=== PATIENT | female | born 1945 | race Caucasian/White ===

== ENCOUNTER 2018-08-12 09:35 | Outpatient (REF) | payer OTHER, SELFPAY ==
[2018-08-12 12:48] LABS: Absolute Basophil Count 0.02 k/cumm (0.0-0.2); Absolute Eosinophil Count 0.07 k/cumm (0.0-0.7); Absolute Lymphocyte Count 2.25 k/cumm (1.2-3.4); Absolute Neutrophil Count 1.82 k/cumm (1.2-6.7); Basophils % 0.4; Eosinophils % 1.6; HGB 13.9 g/dL (12.0-15.5); Lymphocytes % 50.4; Mean Corp. HGB Concentration 33.1 g/dL (32.0-36.0); Mean Corpuscular Volume 93.8 fL (80-95); Mean Platelet Volume 11.4 fL (8.0-11.0); Monocytes % 6.7; Neutrophils % 40.9; Platelet Count 240 x1000/uL (130-400); RBC 4.48 m/cumm (4.00-5.20); RBC Distribution Width 13.6 % (11.7-14.6); White Blood Cell Count 4.46 k/cumm (4.4-10.8)
[2018-08-12 13:09] LABS: ALT 18 U/L (12-78); AST 17 U/L (15-37); Albumin 3.8 g/dL (3.4-5.0); Alkaline Phosphatase 79 U/L (46-116); Anion Gap 6.6 mmol/L (3-11); BUN 18 mg/dL (7-18); Bilirubin, Total 0.4 mg/dL (0.2-1.0); CO2 30.4 mmol/L (21.0-32.0); CREATININE 0.94 mg/dL (0.55-1.02); Calcium 9.2 mg/dL (8.5-10.1); Chloride 105 mmol/L (98-107); Cholesterol 230 mg/dL (50-200); Estimated GFR 58.21 (mL/min/1.73m2); Glucose 131 mg/dL (70-100); HDL Cholesterol 64 mg/dL (40-60); LDL CHOLESTEROL 145 mg/dL (<100); Potassium 4.1 mmol/L (3.5-5.1); Sodium 142 mmol/L (136-145); Total Protein 6.8 g/dL (6.4-8.2); Triglyceride 134 mg/dL (30-150)
== END 2018-08-12 09:55 ==
LOC: NCHCN 09:35
PROVIDERS: PCP Nurse Practitioner Family; Visit Provider Family Medicine
DX: E87.1 Hypo-osmolality and hyponatremia (principal); D72.829 Elevated white blood cell count, unspecified; E78.5 Hyperlipidemia, unspecified; I10 Essential (primary) hypertension
CPT/HCPCS: 80053; 80061; 83721; 84443; 85025

== ENCOUNTER 2018-09-13 08:00 | Day surgery (SDC) | payer OTHER, SELFPAY ==
--- NOTE | 2018-09-11 09:33 | POEE_ITS ---
History of Present Illness Chief Complaint: Progressive decreased vision, left eye Narrative: The patient is a 72-year old lady with history of progressive decreased vision over the past several years, left eye worse than right. 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 On examination she was noted to have significant bilateral nuclear and cortical cataracts. The option of cataract surgery was offered to the patient, including that postoperative visual acuity will be limited by the presence of her pre-existing optic neuropathy. She wished to proceed with cataract surgery of the left eye. NOTE: The Chief Complaint, HPI, Past Medical History, Past Surgical History, Family History, Social History, Medications, and complete Ophthalmic Exam with detailed Assessment and Plan have already been documented in the patient's outpatient ophthalmic record and are not covered again in detail here. PFS Medical History Cortical cataract of left eye (Acute) Optic atrophy, left eye (Chronic) Nuclear sclerotic cataract of left eye (Acute) Nuclear sclerotic cataract of right eye (Chronic) Cortical cataract of right eye (Chronic) Optic atrophy, right eye (Chronic) Social History Smoking/Tobacco Use Status: Never Meds Home Medications Medication Instructions Recorded Confirmed Type atorvastatin [Lipitor] 10 mg PO DAILY 08/15/14 09/08/18 History hydrochlorothiazide 12.5 mg PO DAILY 08/15/14 09/08/18 History aspirin [Aspirin Low-Strength] 81 mg PO DAILY tab-cap 08/29/14 09/08/18 History amlodipine [Norvasc] 10 mg PO DAILY 09/08/18 09/08/18 History cholecalciferol (vitamin D3) 2,000 unit PO DAILY 09/08/18 09/08/18 History [Vitamin D3] salmon oil-omega-3 fatty acids 2 cap PO DAILY 09/08/18 09/08/18 History [[place] Oil-1000] Allergies Allergy/AdvReac Type Severity Reaction Status Date / Time No Known Allergies Allergy Unverified 09/08/18 14:19 Exam OCULAR EXAM:: Visual acuity at distance: Best corrected distance visual acuity measures 20/80 OD, 20/100 OS. Pupils: Pupils equal, round, and reactive without afferent pupillary defect IOP: 13 OD, 17 OS Extraocular Motility: Normal Pertinent Slit Lamp Findings: Significant for pupils dilating to 5 mm OU. 3+ nuclear with 3+ cortical cataract OU. Dilated Funduscopic Examination: Disc cupping is 0.8 OU with pallor. The retinal vasculature is normal. The macula vitreous and peripheral retina are normal. BRIGHTNESS ACUITY TESTING (BAT):: Off left eye 20/200 Low: 20/100 Medium: 20/200 High: 20/200 Assessment and Plan (1) Nuclear sclerotic cataract of left eye: Current visit: No Status: Acute Assessment: Visually significant cataract, left eye. Plan: Cataract extraction with intraocular lens implantation, left eye (2) Cortical cataract of left eye: Current visit: No Status: Acute Assessment: Visually significant cataract, left eye. Plan: Cataract extraction with intraocular lens implantation, left eye (3) Optic atrophy, left eye: Current visit: No Status: Chronic Assessment: Optic atrophy with pallor and disc cupping of the left eye, long-standing Plan: Monitor. There is no treatment. Patient is aware that postoperative visual acuity after cataract surgery in the left eye will be limited by the presence of her pre-existing optic neuropathy. Note: NOTE:: The details of the planned surgery, including the risks, indications, limitations,expectations,outcome and possible complications were explained to the patient. The patient understands the complications including, but not limited to: infection, hemorrhage, posterior dislocation of the lens or nuclear fragments which may require the intervention of a vitreoretinal surgeon, possible loss of the eye, or from anesthetic complications. The patient has been made aware of the option of not having surgery, that vision following surgery may not be equal to that prior to surgery, and that the planned surgery may not achieve the intended results. Following this discussion, which the patient appeared to understand, the patient wishes to proceed with cataract surgery with lens implantation of the affected eye to improve and maximize vision.
[2018-09-13 08:23] VITALS: BP 154/91; PULSE 83; RESP 16; TEMP 36.6; O2SAT 99
[2018-09-13] MEDS: Povidone-Iodine Ophth 30 ML BTL ×2 (09:40→10:06)
[2018-09-13] MEDS: Lidocaine 2% Jelly 6 ML SYR (09:41)
[2018-09-13] MEDS: Balanced Salt Soln.-PLUS 500 ML BAG (09:47)
[2018-09-13] MEDS: Lidocaine 2% Pres-Free 5 ML VIAL (09:48)
--- NOTE | 2018-09-13 10:11 | W.PM.DSUDISC ---
Discharge Plan Discharge Details Attending Provider: Evaristo Urena Primary Care Provider: Chitra Franks Home Meds and New Rx's Prescriptions: No Action aspirin [Aspirin Low-Strength] 81 MG tablet,chewable 81 mg PO DAILY RF: 0 atorvastatin [Lipitor] 10 MG tablet 10 mg PO DAILY RF: 0 hydrochlorothiazide 12.5 MG tablet 12.5 mg PO DAILY RF: 0 amlodipine [Norvasc] 10 mg Tablet 10 mg PO DAILY RF: 0 salmon oil-omega-3 fatty acids [[place] Oil-1000] 1,000-200 mg Capsule 2 cap PO DAILY RF: 0 cholecalciferol (vitamin D3) [Vitamin D3] 2,000 unit Tablet 2,000 unit PO DAILY RF: 0 Discharge Instructions Stand Alone Forms: Post-op Topical Cataract, Clary Ferrara (DSU) DS: Diagnosis Discharge Diagnosis (1) Nuclear sclerotic cataract of left eye: Status: Resolved (2) Cortical cataract of left eye: Status: Resolved (3) Optic atrophy, left eye: Status: Chronic (4) Status post cataract extraction and insertion of intraocular lens of left eye: Status: Acute
--- NOTE | 2018-09-13 10:13 | W.PM.OP ---
Date of service: 09/13/18 Time of Service: 10:13 Operative Note DATE OF PROCEDURE: 09/13/18 PRE-OP DIAGNOSIS: Cataract, left eye POST-OP DIAGNOSIS: same PROCEDURE: Cataract extraction using phacoemulsification with intraocular lens implant, left eye SURGEON: Evaristo Urena ANESTHESIA: MAC and local (sub-tenon's anesthetic infiltration) PATHOLOGY: none sent COMPLICATIONS: None Patient was transported to: same day Patient's condition: stable Implants: Gael and Gael Vision / [employer] Tecnis ZCB00 Indications: Progressive decreased vision due to cataract, left eye Procedure Description: CATARACT SURGERY OPERATIVE REPORT PREOPERATIVE DIAGNOSIS: Nuclear/cortical cataract, left eye, symptomatic Optic atrophy, left eye POSTOPERATIVE DIAGNOSIS: Same OPERATION: Cataract extraction using phacoemulsification with posterior chamber intraocular lens implant, left eye. IOL: IOL Test And Balance Engineer/Model: [employer] Vision / CRISTINA Tecnis ZCB00 IOL Power: + 20.0 diopters IOL Serial Number: [id number] Optic Diameter: 6.0mm Haptic/Overall Diameter: 13.0mm PHACO INFO: Av [employer]urion Vision System with OZil and Active Fluidics Cumulative Dispersed Energy (CDE): 10.50 seconds SURGEON: Evaristo Urena MD, CONNIE ANESTHESIA: Monitored Anesthesia Care (MAC), with local sub-tenon's anesthetic infiltration COMPLICATIONS: None SPECIMENS: None INDICATIONS FOR PROCEDURE: The patient is a 72-year-old lady with long history of bilateral optic atrophy. She has developed significant bilateral nuclear and cortical cataracts. Best corrected vision measures 20/100 in the left eye secondary to optic atrophy and cataract. The option of cataract surgery was offered to the patient and she wished to proceed. She understands that postoperative visual acuity will be limited by the presence of pre-existing optic neuropathy. PROCEDURE: The correct surgical eye was identified and marked as the left eye and the pupil was dilated in the preoperative area using mydriatics, cycloplegics, and NSAIDS (except in aspirin allergic patients). The dilated pupil size was 6.0 mm. Oral sedation was administered in the form of an Imprimis MKO Melt (midazolam 3mg/ketamine 25mg/ondansetron 2mg), she was very anxious. The patient was brought to the operating room where cardiopulmonary monitoring was instituted and surgical time-out was performed, confirming the correct operative eye and IOL power. Topical anesthesia was administered and ophthalmic povidone-iodine 5% was instilled into the conjunctival fornices. Lidocaine gel was applied to the cornea and the leonard-ocular area was prepped with Betadine 10% solution and draped in the usual sterile fashion for intraocular surgery. Steri-strips were used to cover the lashes and lid margins and an adhesive eye drape was placed. Care was taken to isolate the lashes and lid margins under the Steri-strips and adhesive eye drape. A lid speculum was placed between the lids of the operative eye and the Jacky-Cameron operating microscope was maneuvered into position. Marychuy scissors were then used to make a conjunctival buttonhole approximately 6mm posterior to the limbus in the inferonasal quadrant. Blunt dissection was carried out to expose bare sclera, and a blunt-tipped sub-tenon?s anesthesia cannula was introduced and passed posteriorly along the globe where non-preserved plain lidocaine was injected into posterior sub-Tenon?s space. A sideport knife was used to make a paracentesis port at the 12:00 postion and the anterior chamber was filled with Healon GV. A 2.4mm keratome knife was used to create a half-thickness groove at the limbus and then to construct a three-plane near-clear corneal tunnel extending 2.0mm into clear cornea at the 3:00 position. A flap was raised on the anterior capsule and capsulorhexis forceps were used to complete a continuous curvilinear capsulorhexis of 5.5 mm. Balanced salt solution was then used to perform cortical cleaving hydrodissection and nuclear hydrodelineation until the lens could be freely rotated within the capsular bag. The lens nucleus was then disassembled and removed within the capsular bag and iris plane using phacoemulsification. Residual cortical material was removed using the 45-degree angled silicone I/A tip with 0.3mm port. The posterior capsule was carefully polished to remove as much residual lens epithelial cells as safely possible. There was some residual cortical material adherent to the posterior capsule superiorly and in the subincisional area which could not be safely removed due to constant patient movement. It was not in the visual axis and was left in place. The capsular bag was then inflated and the anterior chamber deepened with viscoelastic. The lens implant described above was inserted into the capsular bag using the CRISTINA Tazlina Injector. A Kuglen hook was used to dial the IOL into position. Residual viscoelastic was then removed first from posterior to the IOL, then from the anterior chamber using the I/A handpiece. The lens implant was noted to center nicely within the capsular bag. The incisions were stromally hydrated, and the anterior chamber was reformed using BSS. Then 0.4cc of moxifloxacin 1.5mg/ml were injected into the capsular bag and anterior chamber. The incisions were checked with a Weck spear and found to be secure. Several drops of ophthalmic povidone-iodine 5% were then applied to the eye followed by two drops of Imprimis combination moxifloxacin/dexamethasone solution. The drapes were removed and a clear plastic protective eye shield was placed over the eye. The patient was then returned to Same Day Surgery in stable condition.
--- NOTE | 2018-09-13 10:17 | ROE_ITS ---
Date of service: 09/13/18 Time of Service: 10:13 Operative Note DATE OF PROCEDURE: 09/13/18 PRE-OP DIAGNOSIS: Cataract, left eye POST-OP DIAGNOSIS: same PROCEDURE: Cataract extraction using phacoemulsification with intraocular lens implant, left eye SURGEON: Evaristo Urena ANESTHESIA: MAC and local (sub-tenon's anesthetic infiltration) PATHOLOGY: none sent COMPLICATIONS: None Patient was transported to: same day Patient's condition: stable Implants: Gael and Gael Vision / [employer] Opt[employer] Tecnis ZCB00 Indications: Progressive decreased vision due to cataract, left eye Procedure Description: CATARACT SURGERY OPERATIVE REPORT PREOPERATIVE DIAGNOSIS: Nuclear/cortical cataract, left eye, symptomatic Optic atrophy, left eye POSTOPERATIVE DIAGNOSIS: Same OPERATION: Cataract extraction using phacoemulsification with posterior chamber intraocular lens implant, left eye. IOL: IOL Grease Maker/Model: J[employer]J Vision / CRISTINA Tecnis ZCB00 IOL Power: + 20.0 diopters IOL Serial Number: [id number] Optic Diameter: 6.0mm Haptic/Overall Diameter: 13.0mm PHACO INFO: Av [employer] Vision System with OZil and Active Fluidics Cumulative Dispersed Energy (CDE): 10.50 seconds SURGEON: Evaristo Urena MD, CONNIE ANESTHESIA: Monitored Anesthesia Care (MAC), with local sub-tenon's anesthetic infiltration COMPLICATIONS: None SPECIMENS: None INDICATIONS FOR PROCEDURE: The patient is a 72-year-old lady with long history of bilateral optic atrophy. She has developed significant bilateral nuclear and cortical cataracts. Best corrected vision measures 20/100 in the left eye secondary to optic atrophy and cataract. The option of cataract surgery was offered to the patient and she wished to proceed. She understands that postoperative visual acuity will be limited by the presence of pre-existing optic neuropathy. PROCEDURE: The correct surgical eye was identified and marked as the left eye and the pupil was dilated in the preoperative area using mydriatics, cycloplegics, and NSAIDS (except in aspirin allergic patients). The dilated pupil size was 6.0 mm. Oral sedation was administered in the form of an Imprimis MKO Melt (midazolam 3mg/ketamine 25mg/ondansetron 2mg), she was very anxious. The patient was brought to the operating room where cardiopulmonary monitoring was instituted and surgical time-out was performed, confirming the correct operative eye and IOL power. Topical anesthesia was administered and ophthalmic povidone-iodine 5% was instilled into the conjunctival fornices. Lidocaine gel was applied to the cornea and the leonard-ocular area was prepped with Betadine 10% solution and draped in the usual sterile fashion for intraocular surgery. Steri-strips were used to cover the lashes and lid margins and an adhesive eye drape was placed. Care was taken to isolate the lashes and lid margins under the Steri-strips and adhesive eye drape. A lid speculum was placed between the lids of the operative eye and the Jacky-Cameron operating microscope was maneuvered into position. Marychuy scissors were then used to make a conjunctival buttonhole approximately 6mm posterior to the limbus in the inferonasal quadrant. Blunt dissection was carried out to expose bare sclera, and a blunt-tipped sub-tenon? s anesthesia cannula was introduced and passed posteriorly along the globe where non-preserved plain lidocaine was injected into posterior sub-Tenon?s space. A sideport knife was used to make a paracentesis port at the 12:00 postion and the anterior chamber was filled with Healon GV. A 2.4mm keratome knife was used to create a half-thickness groove at the limbus and then to construct a three-plane near-clear corneal tunnel extending 2.0mm into clear cornea at the 3:00 position. A flap was raised on the anterior capsule and capsulorhexis forceps were used to complete a continuous curvilinear capsulorhexis of 5.5 mm. Balanced salt solution was then used to perform cortical cleaving hydrodissection and nuclear hydrodelineation until the lens could be freely rotated within the capsular bag. The lens nucleus was then disassembled and removed within the capsular bag and iris plane using phacoemulsification. Residual cortical material was removed using the 45-degree angled silicone I/A tip with 0.3mm port. The posterior capsule was carefully polished to remove as much residual lens epithelial cells as safely possible. There was some residual cortical material adherent to the posterior capsule superiorly and in the subincisional area which could not be safely removed due to constant patient movement. It was not in the visual axis and was left in place. The capsular bag was then inflated and the anterior chamber deepened with viscoelastic. The lens implant described above was inserted into the capsular bag using the CRISTINA [place] Injector. A Kuglen hook was used to dial the IOL into position. Residual viscoelastic was then removed first from posterior to the IOL, then from the anterior chamber using the I/A handpiece. The lens implant was noted to center nicely within the capsular bag. The incisions were stromally hydrated , and the anterior chamber was reformed using BSS. Then 0.4cc of moxifloxacin 1.5mg/ml were injected into the capsular bag and anterior chamber. The incisions were checked with a Weck spear and found to be secure. Several drops of ophthalmic povidone-iodine 5% were then applied to the eye followed by two drops of Imprimis combination moxifloxacin/dexamethasone solution. The drapes were removed and a clear plastic protective eye shield was placed over the eye. The patient was then returned to Same Day Surgery in stable condition.
[2018-09-13 10:40] VITALS: BP 133/80; PULSE 78; RESP 16; TEMP 36.9; O2SAT 96
== END 2018-09-13 10:35 | disposition home or self-care (01) ==
LOC: SUR 08:02
PROVIDERS: PCP Family Medicine; Visit Provider Ophthalmology
PROC: (CPT 66984; principal; 2018-09-13 10:30)
DX: H25.812 Combined forms of age-related cataract, left eye (principal); H47.20 Unspecified optic atrophy; E11.9 Type 2 diabetes mellitus without complications; I10 Essential (primary) hypertension
CPT/HCPCS: 66984; V2632

== ENCOUNTER 2018-09-27 07:34 | Day surgery (SDC) | payer OTHER, SELFPAY ==
--- NOTE | 2018-09-26 10:13 | POEE_ITS ---
History of Present Illness Chief Complaint: Progressive decreased vision, right eye Narrative: The patient is a 73-year old female with history of progressive decreased vision in both eyes at both distance and near, left eye worse than right. She notes blurry cloudy fuzzy vision OU. She was noted to have significant bilateral nuclear and cortical cataracts with visual acuity of 20/ 100 OD, 20/200 OS. She also has a history of bilateral optic atrophy, and understands that postoperative visual acuity will be limited by the presence of her pre-existing optic neuropathy. She underwent cataract surgery in the left eye on 09/13/2018. Postoperatively she has regained best corrected vision of 20 /70 in the left eye. She was underwhelmed with the visual outcome in her left eye. She was given the option of delaying surgery on the right eye, but she wished to proceed. NOTE: The Chief Complaint, HPI, Past Medical History, Past Surgical History, Family History, Social History, Medications, and complete Ophthalmic Exam with detailed Assessment and Plan have already been documented in the patient's outpatient ophthalmic record and are not covered again in detail here. [facility] Medical History Optic atrophy, left eye (Chronic) Nuclear sclerotic cataract of right eye (Acute) Cortical cataract of right eye (Acute) Optic atrophy, right eye (Chronic) Social History Smoking/Tobacco Use Status: Never Surgical History Status post cataract extraction and insertion of intraocular lens of left eye ( Chronic 09/13/18) Meds Home Medications Medication Instructions Recorded Confirmed Type atorvastatin [Lipitor] 10 mg PO DAILY 08/15/14 09/13/18 History hydrochlorothiazide 12.5 mg PO DAILY 08/15/14 09/13/18 History aspirin [Aspirin Low-Strength] 81 mg PO DAILY tab-cap 08/29/14 09/13/18 History amlodipine [Norvasc] 10 mg PO DAILY 09/08/18 09/13/18 History cholecalciferol (vitamin D3) 2,000 unit PO DAILY 09/08/18 09/13/18 History [Vitamin D3] salmon oil-omega-3 fatty acids 2 cap PO DAILY 09/08/18 09/13/18 History [[place] Oil-1000] Allergies Allergy/AdvReac Type Severity Reaction Status Date / Time No Known Allergies Allergy Unverified 09/08/18 14:19 Exam OCULAR EXAM:: Visual acuity at distance: 20/100 right eye, 20/70 left eye. Pupils: Pupils equal, round, and reactive without afferent pupillary defect IOP: 13 OD 17 OS. Extraocular Motility: Normal Pertinent Slit Lamp Findings: Significant for 3+ nuclear and cortical cataract, right eye. Well-positioned PCIOL left eye with clear posterior capsule. Dilated Funduscopic Examination: Disc cupping is 0.8 OU with pallor. The optic nerves have good perfusion and normal color. The retinal vasculature is normal without significant tortuosity or abnormality. The maculas are normal in appearance with normal contour and foveal reflex appropriate for age. The peripheral retina and vitreous are normal. BRIGHTNESS ACUITY TESTING (BAT):: Off right eye 20/100 Low: 20/80 Medium: 20/200 High: 20/200 Assessment and Plan (1) Nuclear sclerotic cataract of right eye: Current visit: No Status: Acute Assessment: Visually significant cataract, right eye. Plan: Cataract extraction with intraocular lens implantation, right eye (2) Cortical cataract of right eye: Current visit: No Status: Acute Assessment: Visually significant cataract, right eye. Plan: Cataract extraction with intraocular lens implantation, right eye Note: NOTE:: The details of the planned surgery, including the risks, indications, limitations,expectations,outcome and possible complications were explained to the patient. The patient understands the complications including, but not limited to: infection, hemorrhage, posterior dislocation of the lens or nuclear fragments which may require the intervention of a vitreoretinal surgeon, possible loss of the eye, or from anesthetic complications. The patient has been made aware of the option of not having surgery, that vision following surgery may not be equal to that prior to surgery, and that the planned surgery may not achieve the intended results. Following this discussion, which the patient appeared to understand, the patient wishes to proceed with cataract surgery with lens implantation of the affected eye to improve and maximize vision.
[2018-09-27 07:55] VITALS: BP 162/93; PULSE 74; RESP 16; TEMP 36.6; O2SAT 100
[2018-09-27] MEDS: Lidocaine 2% Jelly 6 ML SYR (09:14)
[2018-09-27] MEDS: Balanced Salt Soln.-PLUS 500 ML BAG (09:21)
[2018-09-27] MEDS: Lidocaine 1% Pres-Free 5 ML VIAL (09:38)
[2018-09-27] MEDS: Povidone-Iodine Ophth 30 ML BTL (09:43)
--- NOTE | 2018-09-27 09:43 | W.PM.OP ---
Date of service: 09/27/18 Time of Service: 09:43 Operative Note PRE-OP DIAGNOSIS: Cataract, right eye POST-OP DIAGNOSIS: same SURGEON: Evaristo Urena ANESTHESIA: MAC and local (sub-tenon's anesthetic infiltration) PATHOLOGY: none sent COMPLICATIONS: None Patient was transported to: same day Patient's condition: stable Implants: Gael and Gael Vision / [employer] Opt[employer] Tecnis ZCB00 Indications: Progressive decreased vision due to cataract, right eye Procedure Description: CATARACT SURGERY OPERATIVE REPORT PREOPERATIVE DIAGNOSIS: Nuclear/cortical cataract, right eye, symptomatic POSTOPERATIVE DIAGNOSIS: Same OPERATION: Cataract extraction using phacoemulsification with posterior chamber intraocular lens implant, right eye. IOL: IOL Horticultural Technical Officer/Model: J&J Vision / CRISTINA Tecnis ZCB00 IOL Power: + 20.0 diopters IOL Serial Number: [id number] Optic Diameter: 6.0mm Haptic/Overall Diameter: 13.0mm PHACO INFO: Av [employer] Vision System with OZil and Active Fluidics Cumulative Dispersed Energy (CDE): 7.15 seconds SURGEON: Evaristo Urena MD, CONNIE ANESTHESIA: Monitored Anesthesia Care (MAC), with local sub-tenon's anesthetic infiltration COMPLICATIONS: None SPECIMENS: None INDICATIONS FOR PROCEDURE: The patient is a 73-year-old lady with history of diminished visual acuity in both eyes secondary to the development of bilateral nuclear and cortical cataracts. She has already undergone cataract surgery in the left eye on 09/13/2018 and is doing well postoperatively. She now presents for cataract surgery of the right eye. PROCEDURE: The correct surgical eye was identified and marked as the right eye and the pupil was dilated in the preoperative area using mydriatics, cycloplegics, and NSAIDS (except in aspirin allergic patients). The dilated pupil size was 7.0 mm. Oral sedation was administered in the form of an Imprimis MKO Melt (midazolam 3mg/ketamine 25mg/ondansetron 2mg). The patient was brought to the operating room where cardiopulmonary monitoring was instituted and surgical time-out was performed, confirming the correct operative eye and IOL power. Topical anesthesia was administered and ophthalmic povidone-iodine 5% was instilled into the conjunctival fornices. Lidocaine gel was applied to the cornea and the leonard-ocular area was prepped with Betadine 10% solution and draped in the usual sterile fashion for intraocular surgery. Steri-strips were used to cover the lashes and lid margins and an adhesive eye drape was placed. Care was taken to isolate the lashes and lid margins under the Steri-strips and adhesive eye drape. A lid speculum was placed between the lids of the operative eye and the Jacky-Cameron operating microscope was maneuvered into position. Marychuy scissors were then used to make a conjunctival buttonhole approximately 6mm posterior to the limbus in the inferonasal quadrant. Blunt dissection was carried out to expose bare sclera, and a blunt-tipped sub-tenon?s anesthesia cannula was introduced and passed posteriorly along the globe where non-preserved plain lidocaine was injected into posterior sub-Tenon?s space. A sideport knife was used to make a paracentesis port at the 7:00 postion and the anterior chamber was filled with Healon GV. A 2.4mm keratome knife was used to create a half-thickness groove at the limbus and then to construct a three-plane near-clear corneal tunnel extending 2.0mm into clear cornea at the 10:00 position. A flap was raised on the anterior capsule and capsulorhexis forceps were used to complete a continuous curvilinear capsulorhexis of 5.0 mm. Balanced salt solution was then used to perform cortical cleaving hydrodissection and nuclear hydrodelineation until the lens could be freely rotated within the capsular bag. The lens nucleus was then disassembled and removed within the capsular bag and iris plane using phacoemulsification. Residual cortical material was removed using the 45-degree angled silicone I/A tip with 0.3mm port. The posterior capsule was carefully polished to remove as much residual lens epithelial cells as safely possible. The capsular bag was then inflated and the anterior chamber deepened with viscoelastic. The lens implant described above was inserted into the capsular bag using the CRISTINA [place] Injector. A Kuglen hook was used to dial the IOL into position. Residual viscoelastic was then removed first from posterior to the IOL, then from the anterior chamber using the I/A handpiece. The lens implant was noted to center nicely within the capsular bag. The incisions were stromally hydrated, and the anterior chamber was reformed using BSS. Then 0.4cc of moxifloxacin 1.5mg/ml were injected into the capsular bag and anterior chamber. The incisions were checked with a Weck spear and found to be secure. Several drops of ophthalmic povidone-iodine 5% were then applied to the eye followed by two drops of Imprimis combination moxifloxacin/dexamethasone solution. The drapes were removed and a clear plastic protective eye shield was placed over the eye. The patient was then returned to Same Day Surgery in stable condition.
--- NOTE | 2018-09-27 09:46 | ROE_ITS ---
Date of service: 09/27/18 Time of Service: 09:43 Operative Note PRE-OP DIAGNOSIS: Cataract, right eye POST-OP DIAGNOSIS: same SURGEON: Evaristo Urena ANESTHESIA: MAC and local (sub-tenon's anesthetic infiltration) PATHOLOGY: none sent COMPLICATIONS: None Patient was transported to: same day Patient's condition: stable Implants: Gael and Gael Vision / [employer] Medical Opt[employer] Tecnis ZCB00 Indications: Progressive decreased vision due to cataract, right eye Procedure Description: CATARACT SURGERY OPERATIVE REPORT PREOPERATIVE DIAGNOSIS: Nuclear/cortical cataract, right eye, symptomatic POSTOPERATIVE DIAGNOSIS: Same OPERATION: Cataract extraction using phacoemulsification with posterior chamber intraocular lens implant, right eye. IOL: IOL Faculty Research Assistant/Model: J&J Vision / CRISTINA Tecnis ZCB00 IOL Power: + 20.0 diopters IOL Serial Number: [id number] Optic Diameter: 6.0mm Haptic/Overall Diameter: 13.0mm PHACO INFO: Av [employer] Vision System with OZil and Active Fluidics Cumulative Dispersed Energy (CDE): 7.15 seconds SURGEON: Evaristo Urena MD, CONNIE ANESTHESIA: Monitored Anesthesia Care (MAC), with local sub-tenon's anesthetic infiltration COMPLICATIONS: None SPECIMENS: None INDICATIONS FOR PROCEDURE: The patient is a 73-year-old lady with history of diminished visual acuity in both eyes secondary to the development of bilateral nuclear and cortical cataracts. She has already undergone cataract surgery in the left eye on 2017 and is doing well postoperatively. She now presents for cataract surgery of the right eye. PROCEDURE: The correct surgical eye was identified and marked as the right eye and the pupil was dilated in the preoperative area using mydriatics, cycloplegics, and NSAIDS (except in aspirin allergic patients). The dilated pupil size was 7.0 mm. Oral sedation was administered in the form of an Imprimis MKO Melt (midazolam 3mg/ketamine 25mg/ondansetron 2mg). The patient was brought to the operating room where cardiopulmonary monitoring was instituted and surgical time-out was performed, confirming the correct operative eye and IOL power. Topical anesthesia was administered and ophthalmic povidone-iodine 5% was instilled into the conjunctival fornices. Lidocaine gel was applied to the cornea and the leonard-ocular area was prepped with Betadine 10% solution and draped in the usual sterile fashion for intraocular surgery. Steri-strips were used to cover the lashes and lid margins and an adhesive eye drape was placed. Care was taken to isolate the lashes and lid margins under the Steri-strips and adhesive eye drape. A lid speculum was placed between the lids of the operative eye and the Jacky-Cameron operating microscope was maneuvered into position. Marychuy scissors were then used to make a conjunctival buttonhole approximately 6mm posterior to the limbus in the inferonasal quadrant. Blunt dissection was carried out to expose bare sclera, and a blunt-tipped sub-tenon? s anesthesia cannula was introduced and passed posteriorly along the globe where non-preserved plain lidocaine was injected into posterior sub-Tenon?s space. A sideport knife was used to make a paracentesis port at the 7:00 postion and the anterior chamber was filled with Healon GV. A 2.4mm keratome knife was used to create a half-thickness groove at the limbus and then to construct a three-plane near-clear corneal tunnel extending 2.0mm into clear cornea at the 10:00 position. A flap was raised on the anterior capsule and capsulorhexis forceps were used to complete a continuous curvilinear capsulorhexis of 5.0 mm. Balanced salt solution was then used to perform cortical cleaving hydrodissection and nuclear hydrodelineation until the lens could be freely rotated within the capsular bag. The lens nucleus was then disassembled and removed within the capsular bag and iris plane using phacoemulsification. Residual cortical material was removed using the 45-degree angled silicone I/A tip with 0.3mm port. The posterior capsule was carefully polished to remove as much residual lens epithelial cells as safely possible. The capsular bag was then inflated and the anterior chamber deepened with viscoelastic. The lens implant described above was inserted into the capsular bag using the CRISTINA [place] Injector. A Kuglen hook was used to dial the IOL into position. Residual viscoelastic was then removed first from posterior to the IOL, then from the anterior chamber using the I/A handpiece. The lens implant was noted to center nicely within the capsular bag. The incisions were stromally hydrated , and the anterior chamber was reformed using BSS. Then 0.4cc of moxifloxacin 1.5mg/ml were injected into the capsular bag and anterior chamber. The incisions were checked with a Weck spear and found to be secure. Several drops of ophthalmic povidone-iodine 5% were then applied to the eye followed by two drops of Imprimis combination moxifloxacin/dexamethasone solution. The drapes were removed and a clear plastic protective eye shield was placed over the eye. The patient was then returned to Same Day Surgery in stable condition.
--- NOTE | 2018-09-27 09:47 | PDOC.DSDIS_ITS ---
Discharge Plan Discharge Details Attending Provider: Evaristo Urena Primary Care Provider: Chitra Franks Home Meds and New Rx's Prescriptions: No Action aspirin [Aspirin Low-Strength] 81 MG tablet,chewable 81 mg PO DAILY RF: 0 atorvastatin [Lipitor] 10 MG tablet 10 mg PO DAILY RF: 0 hydrochlorothiazide 12.5 MG tablet 12.5 mg PO DAILY RF: 0 amlodipine [Norvasc] 10 mg Tablet 10 mg PO DAILY RF: 0 salmon oil-omega-3 fatty acids [[place] Oil-1000] 1,000-200 mg Capsule 2 cap PO DAILY RF: 0 cholecalciferol (vitamin D3) [Vitamin D3] 2,000 unit Tablet 2,000 unit PO DAILY RF: 0 Discharge Instructions Stand Alone Forms: Post-op Topical Cataract, Clary Ferrara (DSU) DS: Diagnosis Discharge Diagnosis (1) Nuclear sclerotic cataract of right eye: Status: Resolved (2) Cortical cataract of right eye: Status: Resolved (3) Status post cataract extraction and insertion of intraocular lens of right eye: Status: Chronic
[2018-09-27 10:00] VITALS: BP 134/81; PULSE 71; RESP 16; TEMP 37.3; O2SAT 97
== END 2018-09-27 10:16 | disposition home or self-care (01) ==
LOC: SUR 07:35
PROVIDERS: PCP Family Medicine; Visit Provider Ophthalmology
PROC: (CPT 66984; principal; 2018-09-27 09:30)
DX: H25.811 Combined forms of age-related cataract, right eye (principal); Z98.42 Cataract extraction status, left eye; Z96.1 Presence of intraocular lens; E11.9 Type 2 diabetes mellitus without complications; I10 Essential (primary) hypertension
CPT/HCPCS: 66984; V2632

== ENCOUNTER 2019-03-12 09:30 | Emergency (ER) | payer MEDICARE, SELFPAY ==
[2019-03-12 09:39] VITALS: BP 169/76; PULSE 72; RESP 16; TEMP 37; O2SAT 99
--- NOTE | 2019-03-12 10:07 | DI.RAD_ITS ---
SYMPTOM/DIAGNOSIS: FALL, PAIN RIGHT WRIST: There is an intra-articular fracture of the distal radius seen best on the lateral view. There is also question of a fracture extending transversely through the distal radial metaphysis visible on the lateral view. There is surrounding soft tissue swelling. No carpal fractures or dislocation seen. IMPRESSION: Nondisplaced intra-articular fracture of the distal radius.
--- NOTE | 2019-03-12 10:13 | W.ED.GENAD ---
Discharge Plan Disposition Patient Disposition: HOME Discharge Details Chief Complaint: Orthopedic Clinical Impression: Closed fracture of distal end of right radius Primary Care Provider: Chitra Franks ED Provider: Marcellus Villalobos Home Meds and New Rx's Prescriptions: Continued aspirin [Aspirin Low-Strength] 81 MG tablet,chewable 81 mg PO DAILY RF: 0 atorvastatin [Lipitor] 10 MG tablet 10 mg PO DAILY RF: 0 hydrochlorothiazide 12.5 MG tablet 12.5 mg PO DAILY RF: 0 amlodipine [Norvasc] 10 mg Tablet 10 mg PO DAILY RF: 0 [place] Oil-1000 1,000-200 mg Capsule 2 cap PO DAILY RF: 0 cholecalciferol (vitamin D3) [Vitamin D3] 2,000 unit Tablet 2,000 unit PO DAILY RF: 0 Discharge Instructions Instructions: Wrist Fracture in Adults (ED) Additional Instructions: Please take ibuprofen over the counter - dose according to label. Please follow-up with orthopedics. Call for an appointment. Use wrist splint and no use of right hand and wrist until cleared. Return to the ER for any worsening or new concerning symptoms. Referrals: Bowen Morse MD [ [facility] STAFF PHYSICIAN] - Discharge Data Discharge Date/Time-TO BE ENTERED AT DEPARTURE: 03/12/19 12:00 Medical Decision Making 73-year-old female with FOOSH injury 3 hours prior to arrival after fall down 3-4 steps, here with right wrist pain and tenderness. Neurovascular intact distally. X-ray of the right wrist interpreted by me: Concern for nondisplaced distal radial fracture. X-ray reviewed and interpreted by radiology: Lucency in the dorsal aspect of the distal radius seen only on the lateral may represent unhealed fracture of unknown age. [place] volar wrist splint applied. Patient neurovascular intact post splint application. Patient was advised to call orthopedics to arrange follow-up. She was instructed not to use her right wrist until cleared. Ibuprofen was recommended. Usual customary discharge instructions were provided. HPI General Mode of arrival: ambulatory. Date/Time Provider Initiated Documentation: 03/12/19 09:45. Limitations to Documentation: no limitations. Information obtained by: patient. HPI Narrative: 73-year-old female with FOOSH injury 3 hours prior to arrival after fall down 3-4 steps, here with right wrist pain, moderate, localized to dorsal wrist, worse with flex/ext wrist, no assoc numbness or weakness. No head trauma. No other injury. Related Data Home Medications Medication Instructions Recorded Confirmed atorvastatin [Lipitor] 10 mg PO DAILY 08/15/14 03/12/19 hydrochlorothiazide 12.5 mg PO DAILY 08/15/14 03/12/19 aspirin [Aspirin Low-Strength] 81 mg PO DAILY tab-cap 08/29/14 03/12/19 [place] Oil-1000 2 cap PO DAILY 09/08/18 03/12/19 amlodipine [Norvasc] 10 mg PO DAILY 09/08/18 03/12/19 cholecalciferol (vitamin D3) 2,000 unit PO DAILY 09/08/18 03/12/19 [Vitamin D3] Allergies Allergy/AdvReac Type Severity Reaction Status Date / Time No Known Allergies Allergy Unverified 03/12/19 09:42 General Stated Complaint: Orthopedic BERONICA: 4 Review of Systems Constitutional Denies headache(s) ENT Denies headache(s) and Denies neck pain Musculoskeletal Reports as per HPI and Denies neck pain Integumentary/Breasts Comments: no laceration Neurologic Denies headache(s) [facility] Medical History Optic atrophy, left eye (Chronic) Optic atrophy, right eye (Chronic) Cortical cataract of right eye (Resolved) Nuclear sclerotic cataract of right eye (Resolved) Surgical History Status post cataract extraction and insertion of intraocular lens of right eye (Chronic) Status post cataract extraction and insertion of intraocular lens of left eye (Chronic 09/13/18) Social History Smoking/Tobacco Use Status: Never Drug use: Never Do you feel safe in your relationship?: Yes Exam Const General: cooperative and no acute distress [facility] Head: normocephalic and atraumatic Mouth: moist mucous membranes Neck Neck: trachea midline and supple Resp Auscultation: clear to auscultation bilaterally, no rales, no rhonchi and no wheezes Cardio Jugular venous pressure: no JVD Rate: regular rate and not tachycardic Rhythm: regular rhythm Pulses: radial pulses present on the right 2+ GI Palpation: soft, not firm, no guarding, no masses, not rigid and nontender Skin General skin exam: no rashes or lesions noted Neuro General: alert, awake, oriented x3 and tone normal Extrem General: no edema Right upper extremity: elbow/forearm Details: normal to inspection and normal ROM; no tenderness and wrist Details: tenderness Location: of the distal radius, swelling (mild) Location: of the dorsal wrist and abnormal ROM Details: pain with active ROM during Details: with extension Course Vital Signs Temperature 37 C 03/12/19 09:39 Pulse 72 03/12/19 09:39 Respiratory Rate 16 03/12/19 09:39 Blood Pressure 169/76 H 03/12/19 09:39 Pulse Oximetry 99 03/12/19 09:39 Temperature 37 C 03/12/19 09:39 Temperature Source Skin 03/12/19 09:39 Pulse 72 03/12/19 09:39 Respiratory Rate 16 03/12/19 09:39 Respiratory Effort Non-Labored 03/12/19 09:39 Blood Pressure 169/76 H 03/12/19 09:39 Blood Pressure Position Sitting 03/12/19 09:39 Pulse Oximetry 99 03/12/19 09:39 Oxygen Delivery Method Room Air 03/12/19 09:39 Oxygen Flow Rate 0 03/12/19 09:39 Pain Level 6 03/12/19 10:08
--- NOTE | 2019-03-12 11:33 | DI.VRAD_ITS ---
EXAM: XR Right Wrist Complete, 3 or more Views EXAM DATE/TIME: 03/12/2019 10:18 AM CLINICAL HISTORY: 73 years old, female; Pain; Wrist; Right TECHNIQUE: Imaging protocol: XR Right wrist 3 or more views. COMPARISON: No relevant prior studies available. FINDINGS: Bones/joints: Degenerative changes in the radiocarpal joint Lucency in the dorsal aspect of the distal radius seen only on the lateral may represent unhealed fracture of unknown age. Soft tissues: Circumferential soft tissue swelling. IMPRESSION: Lucency in the dorsal aspect of the distal radius seen only on the lateral may represent unhealed fracture of unknown age. Dictated and Authenticated by: Jaya Coleman MD. Ordering:TESS Germain MD
== END 2019-03-12 12:00 | disposition home or self-care (01) ==
PROVIDERS: Emergency Provider Student in an Organized Health Care Education/Training Program; PCP Family Medicine
DX: S52.591A Other fractures of lower end of right radius, initial encounter for closed fracture (principal); W10.9XXA Fall (on) (from) unspecified stairs and steps, initial encounter
CPT/HCPCS: 25600; 73110; L3908

== ENCOUNTER 2019-03-30 09:46 | Outpatient (CLI) | payer MEDICARE, SELFPAY ==
--- NOTE | 2019-03-30 09:44 | DI.RAD_ITS ---
SYMPTOM/DIAGNOSIS: F/U FX RIGHT WRIST: Three views. Comparison is made with 03/12/19. There has been no change in alignment of the fracture involving the distal right radius compared to the prior examination. No new fractures or dislocations are seen.
== END 2019-03-30 10:06 ==
PROVIDERS: PCP Family Medicine; Referring Provider Family Medicine; Visit Provider Student in an Organized Health Care Education/Training Program
DX: S52.571A Other intraarticular fracture of lower end of right radius, initial encounter for closed fracture (principal); W19.XXXA Unspecified fall, initial encounter
CPT/HCPCS: 29125; 99203; 99213; 73110; L3908

== ENCOUNTER 2019-04-20 08:08 | Outpatient (CLI) | payer MEDICARE, SELFPAY ==
--- NOTE | 2019-04-20 08:01 | DI.RAD_ITS ---
SYMPTOM/DIAGNOSIS: F/U FX RIGHT WRIST: When compared with the previous examination of 03/30/19, there has been no interval change. Again noted is the radiolucency and no change in alignment of the fracture when compared with the previous images.
== END 2019-04-20 08:28 ==
PROVIDERS: PCP Family Medicine; Referring Provider Family Medicine; Visit Provider Student in an Organized Health Care Education/Training Program
DX: S52.571D Other intraarticular fracture of lower end of right radius, subsequent encounter for closed fracture with routine healing (principal); W19.XXXD Unspecified fall, subsequent encounter
CPT/HCPCS: 99213; 73110

== ENCOUNTER → 2019-05-25 08:26 | Outpatient (BNVA) | payer MEDICARE, SELFPAY | PROVIDERS: PCP Family Medicine; Referring Provider Family Medicine; Visit Provider Student in an Organized Health Care Education/Training Program | DX: S52.571A Other intraarticular fracture of lower end of right radius, initial encounter for closed fracture (principal); X58.XXXA Exposure to other specified factors, initial encounter | CPT/HCPCS: 99213 ==

== ENCOUNTER 2019-09-15 08:29 | Outpatient (REF) | payer MEDICARE, SELFPAY ==
[2019-09-15 13:40] LABS: HCT 43.2 % (36.0-46.0); HGB 14.2 g/dL (12.0-15.5); Mean Corp. HGB Concentration 32.9 g/dL (32.0-36.0); Mean Corpuscular Hemoglobin 30.5 pg (27.0-33.0); Mean Corpuscular Volume 92.9 fL (80-95); Mean Platelet Volume 11.2 fL (8.0-11.0); Platelet Count 293 x1000/uL (130-400); RBC 4.65 m/cumm (4.00-5.20); RBC Distribution Width 13.8 % (11.7-14.6); White Blood Cell Count 4.95 k/cumm (4.4-10.8)
[2019-09-15 13:54] LABS: ALT 21 U/L (14-59); AST 14 U/L (15-37); Albumin 3.7 g/dL (3.4-5.0); Alkaline Phosphatase 91 U/L (46-116); Anion Gap 9.2 mmol/L (3-11); BUN 24 mg/dL (7-18); Bilirubin, Total 0.7 mg/dL (0.2-1.0); CO2 28.8 mmol/L (21.0-32.0); Calcium 9.3 mg/dL (8.5-10.1); Calculated LDL 145 mg/dL; Chloride 105 mmol/L (98-107); Cholesterol 231 mg/dL (50-200); Glucose 132 mg/dL (70-100); HDL Cholesterol 62 mg/dL (40-60); Sodium 143 mmol/L (136-145); Total Protein 6.9 g/dL (6.4-8.2); Triglyceride 123 mg/dL (30-150)
[2019-09-15 14:46] LABS: Hemoglobin A1C 6.5 % (4.5-6.2)
== END 2019-09-15 08:49 ==
LOC: NCHCN 08:29
PROVIDERS: PCP Family Medicine; Visit Provider Family Medicine
DX: E11.9 Type 2 diabetes mellitus without complications (principal); E78.5 Hyperlipidemia, unspecified; R53.83 Other fatigue
CPT/HCPCS: 80053; 80061; 85027; 83036

== ENCOUNTER 2020-09-06 10:06 | Outpatient (REF) | payer MEDICARE, SELFPAY ==
[2020-09-06 21:13] LABS: HCT 43.3 % (36.0-46.0); HGB 14.3 g/dL (11.2-15.7); MCH 30.3 pg (27.0-33.0); MCV 91.7 fL (80-95); MPV 11.3 fL (8.0-11.0); Platelet Count 275 10^3/uL (130-400); RBC 4.72 10^6/uL (3.93-5.22); RDW 13.1 % (11.7-14.6); RDW-SD 44.3 fL; WBC 6.07 10^3/uL (4.4-10.8)
[2020-09-06 21:41] LABS: Hemoglobin A1C 6.5 % (<5.7)
[2020-09-06 21:49] LABS: ALT 18 U/L (14-59); AST 23 U/L (15-37); Alkaline Phosphatase 78 U/L (46-116); Anion Gap 11.2 mmol/L (3-11); BUN 23 mg/dL (7-18); CO2 27.8 mmol/L (21.0-32.0); Calcium 9.8 mg/dL (8.5-10.1); Calculated LDL 167 mg/dL (<100); Chloride 103 mmol/L (98-107); Cholesterol 256 mg/dL (<200); Estimated GFR 48.29 (mL/min/1.73m2); Glucose 145 mg/dL (74-106); HDL Cholesterol 68 mg/dL (40-60); Sodium 142 mmol/L (136-145); Total Protein 7.3 g/dL (6.4-8.2); Triglyceride 108 mg/dL (<150)
== END 2020-09-06 10:26 ==
LOC: NCHCN 10:06
PROVIDERS: PCP Family Medicine; Visit Provider Family Medicine
DX: E11.9 Type 2 diabetes mellitus without complications (principal); I10 Essential (primary) hypertension; E78.5 Hyperlipidemia, unspecified
CPT/HCPCS: 80053; 80061; 85027; 83036

== ENCOUNTER 2021-04-12 00:43 | Outpatient (CLI) | payer MEDICARE, SELFPAY ==
--- NOTE | 2021-04-12 13:00 | NS.NUTBLAN_ITS ---
Cheryl was referred for Medical Nutrition Therapy for diabetes self management education and dietary strategies while having CKD3. Most recent labs (09/06/2020) elevated BUN/Cre, A1C 6.5%, Chol: 256, LDL: 167, Hdl 68. Meds include: atorvastatin, lisinopril, norvasc. Dm is diet controlled. Family hx of ESRD. Cheryl is very concerned about her declining renal function and would like more information on how to reduce further damage by adjusting her intake of potassium, sodium and phosphorus. BMI wnl. Active senior. Cooks most of her own meals, bakes her own bread. Education focused on dietary recommendations for intakes of sodium, potassium and phosphorus in diet to maintain optimal kidney function. Also, encouraged maintaining BP <140/90 and good glycemic control A1C <7%. Reviewed carbohydrate counting to maintain consistent carb intake during day. May need oral DM meds if A1C becomes elevated > 7%, Cheryl's current dietary intake meets recommendations for kidney health at this time as she does most of her own cooking and maintains her BP and A1C in ideal range for kidney health. No follow up planned at this time.
== END 2021-04-12 00:44 | disposition home or self-care (01) ==
PROVIDERS: PCP Family Medicine; Visit Provider Dietitian, Registered
DX: E11.9 Type 2 diabetes mellitus without complications (principal); N18.30 Chronic kidney disease, stage 3 unspecified; Z71.3 Dietary counseling and surveillance
CPT/HCPCS: 97802

== ENCOUNTER 2021-09-26 08:44 | Outpatient (REF) | payer MEDICARE, SELFPAY ==
[2021-09-26 13:58] LABS: Hemoglobin A1C 6.3 % (<5.7)
[2021-09-26 13:59] LABS: ALT 17 U/L (14-59); AST 14 U/L (15-37); Albumin 3.8 g/dL (3.4-5.0); Alkaline Phosphatase 72 U/L (46-116); Anion Gap 8.4 mmol/L (3-11); BUN 21 mg/dL (7-18); Bilirubin, Total 0.7 mg/dL (0.2-1.0); CO2 30.6 mmol/L (21.0-32.0); Calcium 9.6 mg/dL (8.5-10.1); Calculated LDL 279 mg/dL (<100); Chloride 104 mmol/L (98-107); Cholesterol 370 mg/dL (<200); Estimated GFR 53.62 (mL/min/1.73m2); Glucose 133 mg/dL (74-106); HDL Cholesterol 63 mg/dL (40-60); Potassium 4.5 mmol/L (3.5-5.1); Sodium 143 mmol/L (136-145); Total Protein 6.7 g/dL (6.4-8.2); Triglyceride 142 mg/dL (<150)
[2021-09-26 14:04] LABS: Bilirubin Negative (Negative); Blood Negative (Negative); Clarity Clear (Clear); Glucose Negative (Negative); Ketones Negative (Negative); Leukocyte Esterase Trace (Negative); Nitrite Negative (Negative); Specific Gravity 1.025 (1.005-1.025); Urobilinogen 0.2 EU/dL (Up TO 0.2)
[2021-09-26 14:12] LABS: Bacteria Rare HPF (Negative); C & S Indicated? Yes; Casts Negative LPF (Negative); Crystals Negative HPF (Negative); Epithelial Cells Few HPF (Negative); Mucus Negative (Negative); RBC Negative HPF (0-2)
== END 2021-09-26 08:45 | disposition home or self-care (01) ==
LOC: NCHCN 08:44
PROVIDERS: PCP Family Medicine; Visit Provider Family Medicine
DX: E11.9 Type 2 diabetes mellitus without complications (principal); I10 Essential (primary) hypertension; R53.83 Other fatigue; E78.5 Hyperlipidemia, unspecified; R30.0 Dysuria; N18.9 Chronic kidney disease, unspecified
CPT/HCPCS: 80053; 80061; 81003; 81015; 83036; 87086

== ENCOUNTER 2022-03-03 18:12 | Outpatient (REF) | payer MEDICARE, SELFPAY ==
[2022-03-03 19:36] LABS: ALT 21 U/L (14-59); AST 15 U/L (15-37); Alkaline Phosphatase 62 U/L (46-116); Anion Gap 8.1 mmol/L (3-11); BUN 18 mg/dL (7-18); Bilirubin, Total 0.8 mg/dL (0.2-1.0); CO2 28.9 mmol/L (21.0-32.0); CREATININE 1.1 mg/dL (0.55-1.02); Calcium 9.7 mg/dL (8.5-10.1); Chloride 106 mmol/L (98-107); Estimated GFR 48.04 (mL/min/1.73m2); Glucose 131 mg/dL (74-106); Potassium 4.6 mmol/L (3.5-5.1); Sodium 143 mmol/L (136-145); Total Protein 6.6 g/dL (6.4-8.2)
[2022-03-03 19:38] LABS: Hemoglobin A1C 6.3 % (<5.7)
[2022-03-03 19:56] LABS: Calculated LDL 136 mg/dL (<100); Cholesterol 226 mg/dL (<200); HDL Cholesterol 71 mg/dL (40-60); Triglyceride 98 mg/dL (<150)
== END 2022-03-03 18:13 | disposition home or self-care (01) ==
LOC: NCHCN 18:12
PROVIDERS: PCP Family Medicine; Visit Provider Family Medicine
DX: E11.9 Type 2 diabetes mellitus without complications (principal); E78.5 Hyperlipidemia, unspecified; I10 Essential (primary) hypertension; N18.9 Chronic kidney disease, unspecified
CPT/HCPCS: 80053; 80061; 83036

== ENCOUNTER 2022-08-20 08:49 | Outpatient (REF) | payer MEDICARE, SELFPAY ==
[2022-08-20 17:19] LABS: Calculated LDL 143 mg/dL (<100); Cholesterol 236 mg/dL (<200); HDL Cholesterol 66 mg/dL (40-60); Triglyceride 139 mg/dL (<150)
== END 2022-08-20 08:50 | disposition home or self-care (01) ==
LOC: NCHCN 08:49
PROVIDERS: PCP Family Medicine; Visit Provider Family Medicine
DX: E78.5 Hyperlipidemia, unspecified (principal)
CPT/HCPCS: 80061

== ENCOUNTER 2022-08-27 16:50 | Outpatient (REF) | payer MEDICARE, SELFPAY ==
[2022-08-27 19:59] LABS: Anion Gap 5.4 mmol/L (3-11); BUN 21 mg/dL (7-18); CO2 29.6 mmol/L (21.0-32.0); CREATININE 0.9 mg/dL (0.55-1.02); Chloride 105 mmol/L (98-107); Estimated GFR 65.44 (mL/min/1.73m2); Glucose 132 mg/dL (74-106); Potassium 4.1 mmol/L (3.5-5.1); Sodium 140 mmol/L (136-145)
== END 2022-08-27 16:51 | disposition home or self-care (01) ==
LOC: NCHCN 16:50
PROVIDERS: PCP Family Medicine; Visit Provider Family Medicine
DX: Z00.00 Encounter for general adult medical examination without abnormal findings (principal); I10 Essential (primary) hypertension; E78.5 Hyperlipidemia, unspecified
CPT/HCPCS: 80048

== ENCOUNTER 2023-03-24 14:52 | Emergency (ER) | payer MEDICARE, SELFPAY ==
[2023-03-24 14:56] VITALS: BP 182/91; PULSE 88; RESP 18; TEMP 37.3; O2SAT 98
--- NOTE | 2023-03-24 15:02 | ED.GENADUL_ITS ---
Discharge Plan Disposition Patient Disposition: Home Condition: Stable Discharge Details Clinical Impression: Urinary frequency, Back pain, Right flank pain Primary Care Provider: Chitra Franks ED Provider: Марина Saldana Home Meds and New Rx's Prescriptions: Continued multivitamin [Daily Multi-Vitamin] Tablet 1 tab PO DAILY aspirin [Aspirin Low-Strength] 81 MG tablet,chewable 81 mg PO DAILY atorvastatin [Lipitor] 10 MG tablet 10 mg PO DAILY hydrochlorothiazide 12.5 MG tablet 12.5 mg PO DAILY Patient Comments: not taking amlodipine [Norvasc] 10 mg Tablet 10 mg PO DAILY [place] Oil-1000 1,000-200 mg Capsule 2 cap PO DAILY cholecalciferol (vitamin D3) [Vitamin D3] 2,000 unit Tablet 2,000 unit PO DAILY Patient Comments: not taking lisinopril 10 mg tablet 10 mg PO DAILY Patient Comments: TAKE 1 TABLET BY MOUTH EVERY DAY Discharge Instructions Instructions: Flank Pain (ED), Back Pain (ED), Urinary Urgency and Frequency (DC) Additional Instructions: Your blood sugar was noted to be high today. The remainder of your blood tests today are reassuring and show no evidence of acute concerning findings. Your CT scan noted a small stone within your left kidney. Stones within your kidney do not generally cause pain. The CT scan also noted cysts around both of your kidneys but no acute disease noted within the kidneys. Drink plenty of fluids and get plenty of rest. Call your primary care doctor's office tomorrow to schedule a follow-up appointment for reevaluation within the next week. Be sure to limit your intake of sugar and simple carbohydrates such as white alison ad, rice and pasta. Return immediately to the emergency department if you develop any worsening or new concerning symptoms such as fever, worsening urinary symptoms, worsening pain or any other concerns. Discharge Data Discharge Physician: Марина Saldana Medical Decision Making 1500 -- 77yo F w/ a history of hypertension and hyperlipidemia who presents for right flank pain and urinary frequency since yesterday. Patient appears somewhat uncomfortable but nontoxic. Her pain appears reproduc ible with movement. She has no CVA or flank tenderness. Her abdomen is soft and nontender. She has no fever, vomiting or change in bowel habits or abdominal pain to suggest an acute GI etiology. She also has no fever, vomiting or abdominal pain to suggest pyelonephritis. She does not appear to be in significant pain to suggest kidney stone however considering her urinary frequency and flank pain, differential diagnosis includes UTI, pyelonephritis, kidney stone. Will obtain screening labs, CT imaging and give a dose of IV Tylenol. Labs reviewed and urinalysis negative for blood or infection. Will obtain a CT abdomen/pelvis with IV contrast. 1800 -- CT abd/pelvis notes: IMPRESSION: 1. There is a solitary nonobstructive 3 millimeter calculus in left kidney.? No calculi in the nondilated ureters nor within the urinary bladder. 2. Prominent parapelvic cysts are noted in both kidneys.? No true hydronephrosis nor hydroureter.? There are no solid renal masses. 3. No evidence of appendicitis nor acute diverticulitis. Patient reassessed and she states her pain is improved. Discussed at length that other than her high blood sugar, her blood tests are reassuring. Patient notes that she has been diagnosed with diabetes by her PCP but has not been started on medication and has been diet controlled. She was offered a prescription for glucometer but declined stating she will discuss this with her primary care doctor. She is advised to watch her sugar and carb intake. Discussed that her symptoms could be secondary to a muscle strain, sciatica or other musculoskeletal etiology but there does not appear to be any indication for antibiotics or other new medications at this time. She is advised to increase fluids, rest and call her PCP tomorrow for follow-up within the next week. Usual and customary return precautions given prior to discharge. Medical Records Medical records reviewed: Yes I reviewed the patient's medical records. Imaging Data Radiologic Study: Radiologist's impression: CT ABDOMEN ? PELVIS W CLINICAL HISTORY: ? R flank pain, urinary frequency. ? TECHNIQUE:? Imaging Protocol: Axial computed tomography images with coronal and sagittal reformatted images were created and reviewed CONTRAST MATERIAL:? Intravenous: Omnipaque-350? 100cc Oral: None COMPARISON:? No exams were available for comparison FINDINGS: VISUALIZED LUNG BASES: Mild increased markings in left lower lobe basal segments noted.? No pleural effusions..? ABDOMEN: There is no ascites. LIVER: There is a benign 3 millimeter cyst in the left hepatic lobe.? No ominous focal hepatic lesions nor dilatation of intrahepatic ducts. GALLBLADDER/BILIARY: No obvious gallbladder pathology.? Upper CBD is slightly prominent in size.? Mid-lower CBD upper in normal size.? No radiopaque calculi seen within the lower CBD. PANCREAS: No evidence of pancreatic mass nor dilatation of the pancreatic duct.? SPLEEN: Spleen is not enlarged.? No obvious intrasplenic lesions.? Splenic and portal veins are patent. ADRENALS: There are no significant adrenal masses. KIDNEYS:There are multiple parapelvic cysts in both kidneys.? No true hydronephrosis nor hydroureter.? No solid renal masses.? There is a n onobstructive 3 millimeter calculus in the mid-lower pole region of the left kidney.? Ureters are not dilated.? No calculi seen in the ureterovesical junction nor within the urinary bladder.. ABDOMINAL AORTA: Heavily calcified.? Upper normal diameter this age group.? No significant aneurysms of the iliac arteries. LYMPH NODES:There is no retroperitoneal nor paraaortic adenopathy. ABDOMINAL WALL: No evidence of significant anterior abdominal wall nor inguinal hernia. GI: There is no evidence of bowel obstruction, free air, nor abscess. PELVIS:? GI: No evidence of appendicitis.No evidence of sigmoid diverticulitis. LYMPH NODES: There is no intrapelvic nor inguinal adenopathy. REPRODUCTIVE: Uterus size age-appropriate.? No abnormal adnexal masses nor free fluid in the pelvis.? Possible vaginal prolapse. URINARY BLADDER: No calculi nor obvious masses evident OSSEOUS: No fractures and no significant osseous lesions. IMPRESSION: 1. There is a solitary nonobstructive 3 millimeter calculus in left kidney.? No calculi in the nondilated ureters nor within the urinary bladder. 2. Prominent parapelvic cysts are noted in both kidneys.? No true hydronephrosis nor hydroureter.? There are no solid renal masses. 3. No evidence of appendicitis nor acute diverticulitis. Lab Data Lab results reviewed: Yes I reviewed the patient's lab results. Labs: Laboratory Tests Range/Units 03/24/23 03/24/23 03/24/23 15:10 15:20 15:20 WBC (4.4-10.8) 10^3/uL 6.77 RBC (3.93-5.22) 10^6/uL 4.56 Hgb (11.2-15.7) g/dL 14.0 Hct (36.0-46.0) % 41.7 MCV (80-95) fL 91 MCH (27.0-33.0) pg 30.7 MCHC (32.0-36.0) % 33.6 RDW (11.7-14.6) % 13.0 Plt Count (130-400) 10^3/uL 251 MPV (8.0-11.0) fL 10.7 Immature Gran % 0.1 Neutrophils % 42.6 Lymphocytes % 49.5 Monocytes % 6.4 Eosinophils % 1.0 Basophils % 0.4 Nucleated RBC % (0.0-0.3) % 0.0 Absolute Neutrophils (1.2-6.7) 10^3/uL 2.88 Absolute Lymphocytes (1.2-3.4) 10^3/uL 3.35 Absolute Monocytes (0.1-0.8) 10^3/uL 0.43 Absolute Eosinophils (0.0-0.7) 10^3/uL 0.07 Absolute Basophils (0.0-0.2) 10^3/uL 0.03 Sodium (136-145) mmol/L 141 Potassium (3.5-5.1) mmol/L 3.8 Chloride (98-107) mmol/L 106 Carbon Dioxide (21.0-32.0) mmol/L 28.9 Anion Gap (3-11) mmol/L 6.1 BUN (7-18) mg/dL 15 Creatinine (0.55-1.02) mg/dL 1.0 Est GFR (CKD-EPI 2020) (mL/min/1.73m2) 57.31 Glucose (74-106) mg/dL 271 H Calcium (8.5-10.1) mg/dL 9.3 Total Bilirubin (0.2-1.0) mg/dL 0.4 AST (15-37) U/L 15 ALT (14-59) U/L 21 Alkaline Phosphatase (46-116) U/L 90 Total Protein (6.4-8.2) g/dL 7.1 Albumin (3.4-5.0) g/dL 3.7 Urine Color (Yellow) Yellow Urine Clarity (Clear) Clear Urine pH (5-8) 6.5 Ur Specific [place] (1.005-1.025) 1.010 Urine Protein (Negative) mg/dL Negative Urine Ketones (Negative) mg/dL Negative Urine Blood (Negative) Negative Urine Nitrite (Negative) Negative Urine Bilirubin (Negative) Negative Urine Urobilinogen (Up to 0.2) mg/dL 0.2 Ur Leukocyte Esterase (Negative) Negative Urine Glucose (Negative) mg/dL 100 H HPI General Mode of arrival: ambulatory . Date/Time Provider Initiated Documentation: 03/24/23 15:01 . Limitations to Documentation: no limitations . Information obtained by: patient . HPI Narrative: Patient is a 77-year-old female with a history of hypertension and hyperlipidemia who presents with right-sided flank pain and urinary frequency since yesterday. Patient states she often has urinary frequency but states it has been worsened yesterday. She describes the pain as intermittent and aching and usually worse with movement and moving from sitting to standing position. She states the pain is 2/10 at rest and 6/10 with movement. She has not taken any medication for pain. She denies any known fever, nausea, vomiting, a bdominal pain, dysuria, hematuria or change in bowel movements. She states her last bowel movement was yesterday and within normal limits and denies any rectal bleeding. She denies any previous history of known kidney stones. Related Data Home Medications Medication Instructions Recorded Confirmed atorvastatin 10 mg tablet (Lipitor) 10 mg PO DAILY 08/15/14 03/24/23 hydrochlorothiazide 12.5 mg tablet 12.5 mg PO DAILY 08/15/14 10/10/20 aspirin 81 mg chewable tablet 81 mg PO DAILY 08/29/14 03/24/23 (Aspirin Low-Strength) amlodipine 10 mg tablet (Norvasc) 10 mg PO DAILY 09/08/18 03/24/23 cholecalciferol (vitamin D3) 50 2,000 unit PO DAILY 09/08/18 10/10/20 mcg (2,000 unit) tablet (Vitamin D3) salmon oil-omega-3 fatty acids 2 cap PO DAILY 09/08/18 03/24/23 1,000 mg-200 mg capsule ([place] Oil-) multivitamin (Daily Multi-Vitamin 1 tab PO DAILY 08/08/20 03/24/23 tablet) lisinopril 10 mg tablet 10 mg PO DAILY 03/24/23 03/24/23 Allergies Allergy/AdvReac Type Severity Reaction Status Date / Time No Known Allergies Allergy Unverified 03/24/23 14:59 General Stated Complaint: FlankPain BERONICA: 3 Review of Systems All systems reviewed & are unremarkable except as noted in HPI and below Constitutional Constitutional: Reports as per HPI, Denies chills and Denies fever(s) Eyes Eyes: Denies blurry vision ENT Ears, Nose, Mouth, and Throat: Denies dizziness, Denies sore throat and Denies throat swelling Cardiovascular Cardiovascular: Denies chest pain and Denies dyspnea Respiratory Respiratory: Denies cough and Denies dyspnea Gastrointestinal Gastrointestinal: Denies abdominal pain, Denies diarrhea and Denies vomiting Genitourinary Genitourinary: Denies hematuria, Denies dysuria, Reports flank pain and Reports other (urinary frequency) Musculoskeletal Musculoskeletal: Denies back pain and Denies numbness Integumentary/Breasts Skin/Breast: Denies lesions and Denies rash Neurologic Neurologic: Denies dizziness, Denies localized weakness and Denies numbness Allergic/Immunologic Allergic/Immunologic: Denies throat swelling PFSH All Active Problems (Updated 03/24/23 @ 18:42 by Марина Saldana DO) Urinary frequency (Acute) Back pain (Acute) Right flank pain (Acute) Malodorous urine (Acute) Pessary maintenance (Acute) Successful placement of [place] pessaries had complications with fecal incontinence with pessary in place Constipation (Chronic) Uses MiraLAX Diabetes (Chronic) 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 Fracture of right distal radius (Acute) Status post cataract extraction and insertion of intraocular lens of right eye (Chronic) Status post cataract extraction and insertion of intraocular lens of left eye (Chronic 09/13/18) Optic atrophy, left eye (Chronic) Optic atrophy, right eye (Chronic) Medical History (Updated 03/24/23 @ 18:42 by Марина Saldana DO) Essential hypertension Hyperlipidemia Surgical History (Updated 03/24/23 @ 15:35 by Марина Saldana DO) History of cataract surgery Family History (Updated 08/16/20 @ 08:46 by Elo Parnell MD) Brother Cancer Nasal cancer Diabetes Brother Cancer Kidney cancer Heart disease Other Hyperlipidemia Hypertension Social History (Updated 08/16/20 @ 08:48 by Elo Parnell MD) Smoking/Tobacco Use Status: Never Smoking risk assessment performed?: Yes Alcohol Intake: never Drug use: Never Household members: spouse and other Details: peter Number of Children: 4 current occupation: retired. lives in [place] during winter Do you feel safe in your relationship?: Yes Female Reproductive History Menstrual Menopause type: natural History History 4 Para Hx # Term Pregnancies 4 Multiple births Hx # Pregnancies Ectopic pregnancies AB induced Hx Number of Living Children AB spontaneous Exam Const General: cooperative, healthy appearing and no acute distress Orientation: alert, awake and oriented x3 HENMT Head: normal to inspection Face and sinus: normal facial exam Eyes General: appearance normal, both eyes and all related structures Pupils: PERRL EOM: EOM intact bilaterally Neck Neck: normal visual inspection and No submandibular swelling Lymphatic: no lymphadenopathy noted Chest Chest: normal inspection of the chest and no tenderness Resp Effort & Inspection: normal respiratory effort and able to speak in complete sentences Auscultation: clear to auscultation bilaterally Cardio Rate: regular rate Rhythm: regular rhythm GI Inspection: normal to inspection Palpation: soft, not firm, not rigid and nontender Auscultation: hypoactive bowel sounds Back/Spine/Pelvis Back: no CVA tenderness Thoracic/Lumbar Spine: No paraspinal tenderness and No lumbar spinal tenderness Skin General skin exam: no rashes or lesions noted Neuro General: patient alert, patient awake and patient oriented x3 Cognition: normal cognition Speech: speech normal Motor: muscle tone normal throughout and strength 5/5 throughout Sensory Exam: no sensory deficits noted Extrem General: normal to inspection, full ROM, capillary refill normal, no calf tenderness bilaterally and no edema Psych Appearance: grossly normal Mental Status: mental status grossly normal Speech and Movement: speech and movement normal Affect: normal affect Course Vital Signs Vital signs: Vital Signs Temperature 99.1 F 03/24/23 14:56 Pulse 88 03/24/23 14:56 Respiratory Rate 18 03/24/23 14:56 Blood Pressure 182/91 H 03/24/23 14:56 Pulse Oximetry 98 03/24/23 14:56 Temperature 99.1 F 03/24/23 14:56 Temperature Source Temporal Artery Scan 03/24/23 14:56 Pulse 88 03/24/23 14:56 Respiratory Rate 18 03/24/23 14:56 Respiratory Effort Normal, Non-Labored 03/24/23 14:58 Blood Pressure 182/91 H 03/24/23 14:56 Pulse Oximetry 98 03/24/23 14:56 Oxygen Delivery Method Room Air 03/24/23 14:56 Oxygen Flow Rate 0 03/24/23 14:56
--- NOTE | 2023-03-24 15:15 | DI.CT_ITS ---
Exam(s) CT ABDOMEN PELVIS W EXAM: CT ABDOMEN PELVIS W CLINICAL HISTORY: R flank pain, urinary frequency. TECHNIQUE: Imaging Protocol: Axial computed tomography images with coronal and sagittal reformatted images were created and reviewed CONTRAST MATERIAL: Intravenous: Omnipaque-350 100cc Oral: None COMPARISON: No exams were available for comparison FINDINGS: VISUALIZED LUNG BASES: Mild increased markings in left lower lobe basal segments noted. No pleural e ffusions.. ABDOMEN: There is no ascites. LIVER: There is a benign 3 millimeter cyst in the left hepatic lobe. No ominous focal hepatic lesion s nor dilatation of intrahepatic ducts. GALLBLADDER/BILIARY: No obvious gallbladder pathology. Upper CBD is slightly prominent in size. Mid -lower CBD upper in normal size. No radiopaque calculi seen within the lower CBD. PANCREAS: No evidence of pancreatic mass nor dilatation of the pancreatic duct. SPLEEN: Spleen is not enlarged. No obvious intrasplenic lesions. Splenic and portal veins are paten t. ADRENALS: There are no significant adrenal masses. KIDNEYS:There are multiple parapelvic cysts in both kidneys. No true hydronephrosis nor hydroureter. No solid renal masses. There is a nonobstructive 3 millimeter calculus in the mid-lower pole regio n of the left kidney. Ureters are not dilated. No calculi seen in the ureterovesical junction nor w ithin the urinary bladder.. ABDOMINAL AORTA: Heavily calcified. Upper normal diameter this age group. No significant aneurysms of the iliac arteries. LYMPH NODES:There is no retroperitoneal nor paraaortic adenopathy. ABDOMINAL WALL: No evidence of significant anterior abdominal wall nor inguinal hernia. GI: There is no evidence of bowel obstruction, free air, nor abscess. PELVIS: GI: No evidence of appendicitis.No evidence of sigmoid diverticulitis. LYMPH NODES: There is no intrapelvic nor inguinal adenopathy. REPRODUCTIVE: Uterus size age-appropriate. No abnormal adnexal masses nor free fluid in the pelvis. Possible vaginal prolapse. URINARY BLADDER: No calculi nor obvious masses evident OSSEOUS: No fractures and no significant osseous lesions. IMPRESSION: 1. There is a solitary nonobstructive 3 millimeter calculus in left kidney. No calculi in the nondil ated ureters nor within the urinary bladder. 2. Prominent parapelvic cysts are noted in both kidneys. No true hydronephrosis nor hydroureter. Th ere are no solid renal masses. 3. No evidence of appendicitis nor acute diverticulitis. Called report to ER physician. RADIATION DOSE DELIVERED: 889.01 mGy.cm Total DLP DATA REPOSITORY: All CT scans at this facility are submitted to the National Radiology Data Registry (NRDR) Dose Index Registry (DIR) with the [employer] ([employer]). RADIATION OPTIMIZATION: All CT scans at this facility use at least one of these dose optimization te chniques: automated exposure control; mA and/or kV adjustment per patient size (includes targeted exa ms where dose is matched to clinical indication); or iterative reconstruction.
[2023-03-24 15:21] LABS: Bilirubin Negative (Negative); Blood Negative (Negative); Clarity Clear (Clear); Glucose 100 mg/dL (Negative); Ketones Negative (Negative); Leukocyte Esterase Negative (Negative); Nitrite Negative (Negative); Urobilinogen 0.2 mg/dL (Up to 0.2); pH 6.5 (5-8)
[2023-03-24 15:27] LABS: Abs Immature Grans 0.01 10^3/uL (0.0-0.06); Absolute Basophil Count 0.03 10^3/uL (0.0-0.2); Absolute Eosinophil Count 0.07 10^3/uL (0.0-0.7); Absolute Lymphocyte Count 3.35 10^3/uL (1.2-3.4); Absolute Monocyte Count 0.43 10^3/uL (0.1-0.8); Absolute Neutrophil Count 2.88 10^3/uL (1.2-6.7); Basophils % 0.4; HCT 41.7 % (36.0-46.0); Immature Grans % 0.1; Lymphocytes % 49.5; MCH 30.7 pg (27.0-33.0); MCHC 33.6 % (32.0-36.0); MCV 91 fL (80-95); MPV 10.7 fL (8.0-11.0); Monocytes % 6.4; Neutrophils % 42.6; Platelet Count 251 10^3/uL (130-400); RBC 4.56 10^6/uL (3.93-5.22); RDW-SD 43.2 fL; WBC 6.77 10^3/uL (4.4-10.8)
[2023-03-24] MEDS: Normal Saline 250 ML 500 ML IV (15:43)
[2023-03-24] MEDS: ACETAMINOPHEN 1,000 MG/100 ML BTL 400 MG IVPB (15:43)
[2023-03-24 15:46] LABS: ALT 21 U/L (14-59); AST 15 U/L (15-37); Albumin 3.7 g/dL (3.4-5.0); Alkaline Phosphatase 90 U/L (46-116); Anion Gap 6.1 mmol/L (3-11); BUN 15 mg/dL (7-18); Bilirubin, Total 0.4 mg/dL (0.2-1.0); CO2 28.9 mmol/L (21.0-32.0); Calcium 9.3 mg/dL (8.5-10.1); Chloride 106 mmol/L (98-107); Estimated GFR 57.31 (mL/min/1.73m2); Glucose 271 mg/dL (74-106); Potassium 3.8 mmol/L (3.5-5.1); Sodium 141 mmol/L (136-145); Total Protein 7.1 g/dL (6.4-8.2)
[2023-03-24] MEDS: Omnipaque 350 MG/ML 100 ML BTL IJ (16:12)
[2023-03-24] MEDS: Normal Saline - Diluent 50 ML VIAL IJ (16:12)
[2023-03-24] MEDS: Normal Saline Flush 10 ML SYR IVP (16:13)
[2023-03-24 18:21] VITALS: BP 136/80; PULSE 72; RESP 20; TEMP 37; O2SAT 99
[2023-03-24] MEDS: Ibuprofen 600 MG TAB PO (18:46)
== END 2023-03-24 18:45 | disposition home or self-care (01) ==
PROVIDERS: Emergency Provider Physician Assistant; PCP Family Medicine
DX: R35.0 Frequency of micturition (principal); M54.9 Dorsalgia, unspecified; R10.31 Right lower quadrant pain
CPT/HCPCS: 80053; 96365; 96375; 99284; 74177; 81003; 85025; J0131; J3490

== ENCOUNTER 2023-06-26 09:27 | Outpatient (REF) | payer MEDICARE, SELFPAY ==
[2023-06-26 15:18] LABS: Calculated LDL 247 mg/dL (<100); Cholesterol 324 mg/dL (<200); HDL Cholesterol 57 mg/dL (40-60); Triglyceride 100 mg/dL (<150)
[2023-06-26 15:42] LABS: Hemoglobin A1C 7.4 % (<5.7)
== END 2023-06-26 09:28 | disposition home or self-care (01) ==
LOC: NCHCN 09:27
PROVIDERS: PCP Family Medicine; Visit Provider Family Medicine
DX: E78.5 Hyperlipidemia, unspecified (principal); E11.9 Type 2 diabetes mellitus without complications
CPT/HCPCS: 80061; 83036

== ENCOUNTER 2023-09-18 12:39 | Outpatient (CLI) | payer MEDICARE, SELFPAY ==
[2023-09-18 11:41] LABS: Hemoglobin A1C 7.5 % (<5.7)
[2023-09-18 12:33] LABS: ALT 19 U/L (14-59); AST 15 U/L (15-37); Albumin 3.9 g/dL (3.4-5.0); Alkaline Phosphatase 81 U/L (46-116); Anion Gap 9.7 mmol/L (3-11); BUN 20 mg/dL (7-18); Bilirubin, Total 0.6 mg/dL (0.2-1.0); CO2 26.3 mmol/L (21.0-32.0); Calcium 9.7 mg/dL (8.5-10.1); Calculated LDL 122 mg/dL (<100); Chloride 106 mmol/L (98-107); Cholesterol 209 mg/dL (<200); Estimated GFR 56.95 (mL/min/1.73m2); Glucose 177 mg/dL (74-106); HDL Cholesterol 70 mg/dL (40-60); Potassium 4.2 mmol/L (3.5-5.1); Sodium 142 mmol/L (136-145); Total Protein 7.2 g/dL (6.4-8.2); Triglyceride 85 mg/dL (<150)
== END 2023-09-18 12:40 | disposition home or self-care (01) ==
LOC: LBO 12:39
PROVIDERS: PCP Family Medicine; Visit Provider Family Medicine
DX: E78.5 Hyperlipidemia, unspecified (principal); E11.9 Type 2 diabetes mellitus without complications; N18.9 Chronic kidney disease, unspecified; I10 Essential (primary) hypertension
CPT/HCPCS: 36415; 80053; 80061; 83036

== ENCOUNTER 2024-03-31 01:22 | Outpatient (CLI) | payer MEDICARE, SELFPAY ==
--- NOTE | 2024-03-31 13:04 | W.NUTRFU ---
Date of service: 03/31/24 Time of Service: 11:30 Nutrition Note NOTE: Received referral regarding diabetes education for this 78yo female patient who informs me she just returned from [place] about 3 weeks ago. No current A1C on referral paperwork - but a mention that pt states it was 9 when she had it checked in [place]. Has been prioritizing self care and diabetes mgt since she returned. Checks FBG each morning - this morning she reports as 227mg/dL. Pt takes Metformin 500mg BID. Also takes salmon oil supplement and chewable womens daily MVI. We reviewed her estimated nutrition needs at 1345kcals (told her to consider 1400 her goal) and 66g protein (1.2g/kg) We looked at getting ~40% of kcals from carbs and suggested beginning with goal of 140gcarbs/9carb choices per day WE reviewed glycemic index of carb foods important - aim for less refined/process choices of grains/starches and keep added sugar category <30g We looked at seeing up repeatable menus and how to divide carb choices up evenly throughout the day. Current diet seems to be supportive sometimes but can easily get extra snacks in. We discussed being active and getting those muscles stimulated in easy ways like isometric exercises - pushing hands together/clasping and pulling hands apart, etc... or PT bands. Pt was given education materials we reviewed along with my card to contact if she has the desire to follow up, get any more resources or get quick questions answered. Recommend vitamin D lab - but in meantime suggested 2,000IU vitamin D per day. With continued high fasting glucose would recommend increasing metformin, and/or adding SGLP2i like empagliflozin if GFR >30. Time Spent in Nutritional Counseling and Treatment: 45 minutes
== END 2024-03-31 01:23 | disposition home or self-care (01) ==
LOC: DS 01:22
PROVIDERS: PCP Family Medicine; Visit Provider Dietitian, Registered
DX: E11.9 Type 2 diabetes mellitus without complications (principal)
CPT/HCPCS: 00123; 97802

== ENCOUNTER 2024-05-03 09:23 | Emergency (ER) | payer MEDICARE, SELFPAY ==
[2024-05-03] VITALS (20 sets, daily range): BP systolic 144–202; BP diastolic 78–125; PULSE 61–98; RESP 13–25; TEMP 36.6–36.9; O2SAT 97–100
--- NOTE | 2024-05-03 09:15 | RT.EKG_ITS ---
APPROVED REPORT Exam: Resting ECG Reason for Exam: SOB Patient Location: E HR:93 bpm ECG Measurements Heart Rate 93 AXIS IA 152 P 33 QRSd 95 QRS 0 QT 345 T 100 QTc 430 Conclusion Sinus rhythm...normal P axis, V-rate 60- 99 Probable left atrial enlargement...P >50mS, <-0.10mV V1 Repol abnrm suggests ischemia, lateral leads...ST dep, T neg, I aVL V5 V6 sinus rhytm, nomral axis, normal intervals, consider anterior lateral st seg depressions
--- NOTE | 2024-05-03 10:00 | DI.RAD_ITS ---
Exam(s) XR CHEST 2V PA LATERAL EXAM: XR CHEST 2V PA LATERAL CLINICAL HISTORY: fatigue TECHNIQUE: 2D digital imaging was performed of the chest. Two images were obtained. PA and lateral views were obtained. COMPARISON: CR CHEST 2 VIEWS PA,LAT from 01/15/2009 FINDINGS: MEDIASTINUM: Normal. HEART: Normal. PULMONARY VASCULATURE: Normal. LUNGS: There is plate atelectasis in the left lung base. No focal consolidating infiltrates are seen . PLEURAL SPACE: No pleural effusion or pneumothorax. BONE:Within normal limits for the patient's age. OTHER FINDINGS:Normal. IMPRESSION: No acute pulmonary findings. DATA REPOSITORY: RADIATION DOSE DELIVERED:
--- NOTE | 2024-05-03 10:06 | W.ED.GENAD ---
Discharge Plan Disposition Patient Disposition: Home Condition: Improving Discharge Details Clinical Impression: Fatigue, Hyperglycemia, Acute UTI Primary Care Provider: Chitra Franks ED Provider: Evaristo Huggins Home Meds and New Rx's Prescriptions: New cefpodoxime 100 mg tablet 100 mg PO BID 5 Days Qty: 10 0RF Rx Instructions: must administer with a meal/food No Action multivitamin [Daily Multi-Vitamin] Tablet 1 tab PO DAILY aspirin [Aspirin Low-Strength] 81 MG tablet,chewable 81 mg PO DAILY atorvastatin [Lipitor] 10 MG tablet 10 mg PO DAILY hydrochlorothiazide 12.5 MG tablet 12.5 mg PO DAILY Patient Comments: not taking amlodipine [Norvasc] 10 mg Tablet 10 mg PO DAILY [place] Oil-1000 1,000-200 mg Capsule 2 cap PO DAILY cholecalciferol (vitamin D3) [Vitamin D3] 2,000 unit Tablet 2,000 unit PO DAILY Patient Comments: not taking lisinopril 10 mg tablet 10 mg PO DAILY Patient Comments: TAKE 1 TABLET BY MOUTH EVERY DAY Discharge Instructions Instructions: Fatigue, Urinary Tract Infection, Adult ED Additional Instructions: 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 HPI General Date/Time Provider Initiated Documentation: 05/03/24 09:44. HPI Narrative: 78-year-old female history of hypertension hyperlipidemia presents with progressive fatigue decreased exertional ability over the last several weeks to months, unintentional weight loss Related Data Home Medications Medication Instructions Recorded Confirmed atorvastatin 10 mg tablet (Lipitor) 10 mg PO DAILY 08/15/14 03/24/23 hydrochlorothiazide 12.5 mg tablet 12.5 mg PO DAILY 08/15/14 10/10/20 aspirin 81 mg chewable tablet 81 mg PO DAILY 08/29/14 03/24/23 (Aspirin Low-Strength) amlodipine 10 mg tablet (Norvasc) 10 mg PO DAILY 09/08/18 03/24/23 cholecalciferol (vitamin D3) 50 2,000 unit PO DAILY 09/08/18 10/10/20 mcg (2,000 unit) tablet (Vitamin D3) salmon oil-omega-3 fatty acids 2 cap PO DAILY 09/08/18 03/24/23 1,000 mg-200 mg capsule ([place] [employer]-) multivitamin (Daily Multi-Vitamin 1 tab PO DAILY 08/08/20 03/24/23 tablet) lisinopril 10 mg tablet 10 mg PO DAILY 03/24/23 03/24/23 cefpodoxime 100 mg tablet 100 mg PO BID 5 days #10 tabs 05/03/24 Previous Rx's Medication Instructions Recorded cefpodoxime 100 mg tablet 100 mg PO BID 5 days #10 tabs 05/03/24 Allergies Allergy/AdvReac Type Severity Reaction Status Date / Time No Known Allergies Allergy Unverified 03/24/23 14:59 General Stated Complaint: GenMedical BERONICA: 3 Review of Systems Narrative: Review of Systems Constitutional: Fatigue unintentional weight loss Eyes: negative ENT: negative Cardiovascular: negative Respiratory: negative Gastrointestinal: negative : negative Musculoskeletal: negative Skin: negative Neurologic: negative Psych: negative Exam Narrative Exam Narrative: Physical Examination General: alert, awake, cooperative, resting comfortably, no acute distress HEENT: normocephalic, atraumatic; PERRL, EOM intact, conjunctiva normal; no nasal discharge; moist mucous membranes, oral and pharyngeal mucosa normal, tolerating secretions Neck: supple, trachea midline; full ROM Chest: normal to inspection Respiratory: normal respiratory effort, speaking in full sentences, clear to auscultation, no wheezing, rales or rhonchi Cardiac: regular rate, regular rhythm, S1S2 intact, no murmurs rubs or gallops GI: abdomen soft, non-tender, non-distended; no palpable mass or hepatosplenomegaly Skin: no lesions, rashes or trauma appreciated Neuro: AAOx3, normal speech, moving all extremities Extremities: No peripheral edema Psych: Appropriate mood and affect Course Vital Signs Vital signs: Vital Signs Temperature 36.6 C 05/03/24 09:28 Pulse 98 H 05/03/24 09:28 Respiratory Rate 14 05/03/24 09:28 Blood Pressure 202/82 H 05/03/24 09:28 Pulse Oximetry 100 05/03/24 09:28 Temperature 36.6 C 05/03/24 09:28 Temperature Source Oral 05/03/24 09:28 Pulse 98 H 05/03/24 09:28 Respiratory Rate 14 05/03/24 09:28 Blood Pressure 202/82 H 05/03/24 09:28 Blood Pressure Position Sitting 05/03/24 09:28 Pulse Oximetry 100 05/03/24 09:28 Oxygen Delivery Method Room Air 06/11/24 09:28 Oxygen Flow Rate 0 05/03/24 09:28 Pain Level 0 05/03/24 09:28 Medical Decision Making 78-year-old female presents with progressive fatigue decreased exertional ability, unintentional weight loss over the last couple weeks to months, being treated for hypertension and diabetes, alert oriented interactive nonfocal afebrile nontoxic normotensive not hypoxic no respiratory stress no peripheral edema. Consider electrolyte derangement versus ACS versus UTI versus viral illness versus must consider malignancy lower suspicion for PE or aortic pathology lower suspicion for CVA. Screening labs urinalysis chest x-ray EKG TSH, disposition pending reassessment and results of imaging Patient resting notably no acute distress. Evidence of mild UTI. Hypertension of self resolved. Troponin EKG chest x-ray negative. Started on empiric cefpodoxime. 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 Fracture of right distal radius (Acute) Status post cataract extraction and insertion of intraocular lens of right eye (Chronic) Status post cataract extraction and insertion of intraocular lens of left eye (Chronic 09/13/18) Optic atrophy, left eye (Chronic) Optic atrophy, right eye (Chronic) Medical History (Updated 05/03/24 @ 12:41 by Evaristo Huggins MD) Essential hypertension Hyperlipidemia Surgical History (Updated 03/24/23 @ 15:35 by Марина Saldana DO) History of cataract surgery Family History (Updated 08/16/20 @ 08:46 by Elo Parnell MD) Brother Cancer Nasal cancer Diabetes Brother Cancer Kidney cancer Heart disease Other Hyperlipidemia Hypertension Social History (Updated 08/16/20 @ 08:48 by Elo Parnell MD) Smoking/Tobacco Use Status: Never Smoking risk assessment performed?: Yes Alcohol Intake: never Drug use: Never Household members: spouse and other Details: peter Number of Children: 4 current occupation: retired. lives in [place] winter Do you feel safe at home: Yes Do you feel safe in your relationship?: Yes Female Reproductive History Menstrual Menopause type: natural History History 4 Para Hx # Term Pregnancies 4 Multiple births Hx # Pregnancies Ectopic pregnancies AB induced Hx Number of Living Children AB spontaneous
[2024-05-03 10:34] LABS: Abs Immature Grans 0.03 10^3/uL (0.0-0.06); Absolute Basophil Count 0.06 10^3/uL (0.0-0.2); Absolute Eosinophil Count 0.16 10^3/uL (0.0-0.7); Absolute Lymphocyte Count 1.63 10^3/uL (1.2-3.4); Absolute Monocyte Count 0.55 10^3/uL (0.1-0.8); Absolute Neutrophil Count 4.76 10^3/uL (1.2-6.7); Basophils % 0.8 %; Eosinophils % 2.2 %; HCT 34.7 % (36.0-46.0); HGB 11.4 g/dL (11.2-15.7); Immature Grans % 0.4 %; Lymphocytes % 22.7 %; MCH 28.7 pg (27.0-33.0); MCHC 32.9 % (32.0-36.0); MCV 87 fL (80-95); MPV 11.6 fL (8.0-11.0); Monocytes % 7.6 %; Neutrophils % 66.3 %; Platelet Count 234 10^3/uL (130-400); RBC 3.97 10^6/uL (3.93-5.22); RDW 13.9 % (11.7-14.6); RDW-SD 44.6 fL; WBC 7.19 10^3/uL (4.4-10.8)
[2024-05-03 10:35] LABS: Bilirubin Negative (Negative); Blood Negative (Negative); Clarity Clear (Clear); Glucose 500 mg/dL (Negative); Ketones Negative (Negative); Leukocyte Esterase Trace (Negative); Nitrite Negative (Negative)
[2024-05-03 10:43] LABS: Bacteria Many HPF (Negative); C & S Indicated? Yes; Casts Negative LPF (Negative); Crystals Negative HPF (Negative); Epithelial Cells Few HPF (Negative); Mucus Negative (Negative); RBC 0-2 HPF (0-2)
[2024-05-03 10:46] LABS: INR 1.1 (0.9-1.1); PTT Activated 24.1 sec (23.6-32.8); Prothrombin Time 11.4 sec (9.1-11.1)
[2024-05-03 11:03] LABS: ALT 39 U/L (14-59); AST 35 U/L (15-37); Albumin 3.1 g/dL (3.4-5.0); Alkaline Phosphatase 543 U/L (46-116); Anion Gap 10.5 mmol/L (3-11); BUN 27 mg/dL (7-18); Bilirubin, Total 0.7 mg/dL (0.2-1.0); CO2 25.5 mmol/L (21.0-32.0); CREATININE 1.2 mg/dL (0.55-1.02); Calcium 9.7 mg/dL (8.5-10.1); Chloride 98 mmol/L (98-107); Estimated GFR 45.76 (mL/min/1.73m2); Glucose 309 mg/dL (74-106); Magnesium 1.9 mg/dL (1.8-2.4); NT-proBNP 218 pg/mL (<300); Potassium 4.1 mmol/L (3.5-5.1); Sodium 134 mmol/L (136-145); TSH (W/Ref FT4) 1.56 uIU/mL (0.36-3.74); Total Protein 7.3 g/dL (6.4-8.2); Troponin I < 50 ng/L (< or =60)
[2024-05-03] MEDS: Normal Saline 1,000 ML 1000 ML IV (11:13)
[2024-05-03] MEDS: Cefpodoxime 200 MG TAB PO (11:13)
== END 2024-05-03 13:04 | disposition home or self-care (01) ==
PROVIDERS: Emergency Provider Emergency Medicine; PCP Family Medicine
DX: R53.1 Weakness (principal); E11.65 Type 2 diabetes mellitus with hyperglycemia; I10 Essential (primary) hypertension; E78.5 Hyperlipidemia, unspecified; N39.0 Urinary tract infection, site not specified; Z79.84 Long term (current) use of oral hypoglycemic drugs; Z79.82 Long term (current) use of aspirin
CPT/HCPCS: 36415; 80053; 82962; 87077; 93005; 96360; 99285; 71046; 81003; 81015; 83735; 83880; 84443; 84484; 85025; 85610; 85730; 87086; 87186; 93010; 99284

== ENCOUNTER → 2024-05-05 00:05 | Outpatient (CLI) | payer MEDICARE, SELFPAY ==
--- NOTE | 2024-05-05 | DI.US_ITS ---
APPROVED REPORT EXAM: Comprehensive 2D, Doppler, and color-flow Echocardiogram Patient Location: Out-Patient Manager Qa: Cee Wilkinson RDCS (AE) Indications: Dyspnea Other Information Study Quality: Adequate. Technically limited study due to body habitus. Conclusion Normal left ventricular wall thickness and chamber size. Ejection fraction is 60%. Wall motion is n ormal Grossly normal right ventricular size and function Both atria are normal in size There are no structural valvular abnormalities Trace mitral, aortic, and tricuspid regurgitation Estimated right ventricular systolic pressure is 43 mmHg Ascending aorta measures 3.77 cm Wall motion Left Ventricle The left ventricle is normal size. The left ventricular systolic function is normal. The left ventric ular ejection fraction is within the normal range. There is normal left ventricular wall thickness. T here is normal LV segmental wall motion. There is no ventricular septal defect visualized. LVEF is 60 % Right Ventricle Right ventricle is grossly normal in size. Right ventricular systolic function is grossly normal. Atria The left atrium size is normal. The right atrium size is normal. The interatrial septum is intact wit h no evidence for an atrial septal defect. Aortic Valve Aortic valve is trileaflet. There is no aortic valvular stenosis. Trace aortic regurgitation. Mitral Valve The mitral valve is normal in structure. No evidence of mitral valve stenosis. Trace mitral regurgita tion. Tricuspid Valve The tricuspid valve is normal in structure. There is no tricuspid valve stenosis. Trace tricuspid reg urgitation. The RVSP is 43.4mmHg. Pulmonic Valve The pulmonary valve is normal in structure. There is no pulmonic valvular stenosis. Trace pulmonic re gurgitation. Great Vessels Aortic root is mildly dilated. The ascending aorta is mildly dilated. Aortic arch is normal in calib er. IVC is normal in size and collapses >50% with inspiration. Pericardium Mild circumferential pericardial effusion. 2D Dimensions IVSD d PLAX 0.97 cm F: 0.6-1.0 Ao Root d 3.48 cm F: 2.7 - 3.3 LVPW d PLAX 0.96 cm F: 0.6 - 1.0 Ao Asc Diam d 3.77 cm F: 2.3 - 3.1 LVID d PLAX 4.49 cm F: 3.8 - 5.2 LVDs 3.22 cm F: 2.2 - 3.5 LV EF Teichholz 54.7 % FS 28.25 % LV EDV (Teich) 91.8 mL LV ESV (Teich) 41.5 mL M-Mode TAPSE 2.03 cm (M/F) >1.7 Auto EF LV EDV A4C 68.0 mL LV EDV A2C 90.9 mL LV EDV BP 77.1 mL LV ESV A4C 31.5 mL LV ESV A2C 42.1 mL LV ESV BP 35.8 mL LVEF(%) A4C 53.7 % LVEF(%) A2C 53.6 % LVEF(%) BP 53.5 % LV SV A4C 36.5 ml LV SV A2C 48.8 ml LV SV BP 41.2 ml LV CO A4C 2.7 L/min LV CO A2C 4.0 L/min LV CO BP 3.4 L/min HR A4C 75.00 BPM HR A2C 82.38 BPM LV EDV Index (BP) LA Volume LA Length A4C 4.5 cm LA Length A2C 5.2 cm LA Area A4C s 13.13 cm2 LA Area A2C s 15.01 cm2 LA Vol A4C A-L 32.66 mL LA Vol A2C A-L 36.84 mL LA Vol Biplane A-L 37.3 mL LA Vol/BSA A4C A-L LA Vol/BSA A2C A-L LA Vol/BSA BP A-L 23.8 mL/m2 LA Vol A4C MOD 30.8 mL LA Vol A2C MOD 33.9 mL LA Vol BP MOD 34.7 mL RA Volume RA Area A4C 9.4 cm2 RA ESV A4C (A-L) 17.8mL RA Vol/BSA A4C A-L RA Length A4C 4.2 cm RA ESV A4C (MOD) 16.2mL LV Diastology MV E' medial 0.054 (>0.07 m/s) MV E Vmax 0.58 (0.4-1.3 m/s) MV E/E' MED 10.92 (<14) MV A Vmax 0.90 (0.4-1.3 m/s) E/A Ratio 0.6 Aortic Valve AoV Vmax 1.20 m/s LVOT Vmax 1.16 m/s AoV Peak Grad 5.7 mmHg LVOT Peak Grad 5.3 mmHg AoV Area (Vmax) 2.93 cm2 LVOT VTI 0.211 m AoV VTI 0.236 m LVOT Mean Grad 3.0 mmHg AoV Mean Heron. 0.94 m/s LVOT SV 64.25 mL AoV Mean Grad 3.8 mmHg LVOT Diam s 1.95 cm AoV Area (VTI) 2.72 cm2 Velocity Ratio 0.97 Mitral Valve MV DT 405 (160-240 msec) MV Vmax TIPS 1.06 m/s MV Mean Grad 1.5 (<2mmHg) MV VTI 0.234 m Pulmonary Valve PV Vmax 1.07 (0.5-1.5 m/s) RVOT Vmax 0.97 m/s PV Peak Grad 4.5 mmHg RVOT Peak Gr. 3.8 mmHg PV Mean Heron 0.71 m/s RVOT VTI 0.147 m PV Mean Grad 2.3 mmHg RVOT Mean Gr. 1.8 mmHg Tricuspid Valve RA Pressure 3.00 mmHg TR Vmax 3.18 m/s TV S' 0.20 m/s TR Peak Grad 40.3 mmHg RVSP (TR) 43.4 mmHg
== END ==
PROVIDERS: PCP Family Medicine; Visit Provider Family Medicine
DX: R06.09 Other forms of dyspnea (principal)
CPT/HCPCS: 93306

== ENCOUNTER → 2024-05-11 02:27 | Outpatient (CLI) | payer MEDICARE, SELFPAY ==
--- NOTE | 2024-05-11 | DI.US_ITS ---
Exam(s) US ABDOMEN LIMITED EXAM: US ABDOMEN LIMITED CLINICAL HISTORY: ALKALINE PHOSPHATASE ABOVE REFERENCE RANGE, R74.8 TECHNIQUE: Ultrasound abdomen performed using standard protocol. COMPARISON: CT CT ABDOMEN PELVIS W from 03/24/2023 FINDINGS: LIVER: Normal size, 13.5 cm in length. Heterogeneous echotexture.. No focal liver lesions are seen. GALLBLADDER: No evidence of cholelithiasis. No evidence of wall thickening. No pericholecystic fluid identified. GARZA'S SIGN: Negative. BILIARY SYSTEM: Common bile duct measures 10 millimeters unchanged from prior CT Right kidney. Normal in size. No evidence of renal calculi. No evidence of hydronephrosis. No renal mass identified. PANCREAS: Normal where visualized. ABDOMINAL AORTA AND IVC: Visualized portions normal caliber. ASCITES: None seen. IMPRESSION: Normal size liver with heterogeneous echotexture. No discrete visible mass. Stable mild dilatation of the common bile duct. DATA REPOSITORY:
== END ==
PROVIDERS: PCP Family Medicine; Visit Provider Family Medicine
DX: K83.8 Other specified diseases of biliary tract (principal); R74.8 Abnormal levels of other serum enzymes
CPT/HCPCS: 36415; 80053; 82550; 76705; 82977

== ENCOUNTER 2024-05-11 14:03 | Outpatient (CLI) | payer MEDICARE, SELFPAY ==
[2024-05-11 14:22] LABS: ALT 38 U/L (14-59); AST 41 U/L (15-37); Albumin 3.1 g/dL (3.4-5.0); Alkaline Phosphatase 579 U/L (46-116); Anion Gap 11.8 mmol/L (3-11); BUN 27 mg/dL (7-18); Bilirubin, Total 0.57 mg/dL (0.2-1.0); CO2 24.2 mmol/L (21.0-32.0); Calcium 9.8 mg/dL (8.5-10.1); Chloride 100 mmol/L (98-107); Creatine Kinase 29 U/L (26-192); Estimated GFR 56.95 (mL/min/1.73m2); GGT 444 U/L (5-55); Glucose 203 mg/dL (74-106); Potassium 4.2 mmol/L (3.5-5.1); Sodium 136 mmol/L (136-145); Total Protein 6.9 g/dL (6.4-8.2)
== END 2024-05-11 14:04 | disposition home or self-care (01) ==
LOC: LBO 14:03
PROVIDERS: PCP Family Medicine; Visit Provider Family Medicine
DX: R74.8 Abnormal levels of other serum enzymes (principal)
CPT/HCPCS: 36415; 80053; 82550; 82977

== ENCOUNTER 2024-05-13 14:42 | Outpatient (CLI) | payer MEDICARE, SELFPAY ==
[2024-05-13 14:21] LABS: Abs Immature Grans 0.04 10^3/uL (0.0-0.06); Absolute Basophil Count 0.06 10^3/uL (0.0-0.2); Absolute Eosinophil Count 0.07 10^3/uL (0.0-0.7); Absolute Lymphocyte Count 2.07 10^3/uL (1.2-3.4); Absolute Monocyte Count 0.66 10^3/uL (0.1-0.8); Absolute Neutrophil Count 5.51 10^3/uL (1.2-6.7); Basophils % 0.7 %; Eosinophils % 0.8 %; HCT 26.7 % (36.0-46.0); HGB 8.7 g/dL (11.2-15.7); Immature Grans % 0.5 %; Lymphocytes % 24.6 %; MCH 29.5 pg (27.0-33.0); MCHC 32.6 % (32.0-36.0); MCV 91 fL (80-95); MPV 10.8 fL (8.0-11.0); Monocytes % 7.8 %; Neutrophils % 65.6 %; RBC 2.95 10^6/uL (3.93-5.22); RDW-SD 48.8 fL; WBC 8.41 10^3/uL (4.4-10.8)
[2024-05-13 14:28] LABS: Diff Comment Diff Reviewed; Hypochromasia 2+; Platelet Count 271 10^3/uL (130-400)
[2024-05-13 14:52] LABS: D-Dimer > 7500 ng/mlFEU (<500)
[2024-05-13 16:08] LABS: Iron 32 ug/dL (50-170); Total Iron Binding Capacity 251 ug/dL (250-450); Transferrin Sat 13 % (15-50)
[2024-05-13 16:42] LABS: Anion Gap 8.5 mmol/L (3-11); BUN 23 mg/dL (7-18); CO2 28.5 mmol/L (21.0-32.0); Calcium 10.1 mg/dL (8.5-10.1); Chloride 97 mmol/L (98-107); Estimated GFR 56.95 (mL/min/1.73m2); Ferritin 236 ng/mL (8-252); Glucose 256 mg/dL (74-106); Magnesium 2.1 mg/dL (1.8-2.4); Potassium 4.1 mmol/L (3.5-5.1); Sodium 134 mmol/L (136-145); Vitamin B12 > 2000 pg/mL (193-986)
[2024-05-13 17:06] LABS: Lipase 148 U/L (16-77)
== END 2024-05-13 14:43 | disposition home or self-care (01) ==
LOC: LBO 14:43
PROVIDERS: PCP Family Medicine; Visit Provider Family Medicine
DX: R74.8 Abnormal levels of other serum enzymes (principal)
CPT/HCPCS: 36415; 80048; 83690; 82607; 82728; 83540; 83550; 83735; 85025; 85379

== ENCOUNTER 2024-05-13 15:31 | Inpatient (IN) | payer MEDICARE, SELFPAY ==
[2024-05-13] VITALS (37 sets, daily range): BP systolic 114–165; BP diastolic 58–99; PULSE 82–101; RESP 11–27; TEMP 36.1–37.5; O2SAT 97–99
--- NOTE | 2024-05-13 15:30 | RT.EKG_ITS ---
APPROVED REPORT Exam: Resting ECG Reason for Exam: Dyspnea Patient Location: E HR:101 bpm ECG Measurements Heart Rate 101 AXIS WY 143 P 28 QRSd 91 QRS 18 QT 330 T 91 QTc 427 Conclusion Sinus tachycardia...rate> 99 Probable left atrial enlargement...P >50mS, <-0.10mV V1 Probable LVH with secondary repol abnrm...multiple LVH criteria Narrow complex sinus rhythm at a rate of 98. Intervals within normal limits. ST segment depressions lead II V3 through V5. Significant artifact in V6. T wave inversion in aVL. Compared to prior jaz ed earlier this month ST segment depressions are persistent as is T wave inversion in aVL. No acute injury pattern.
--- NOTE | 2024-05-13 16:09 | DI.CT_ITS ---
Exam(s) CT CHEST PE ABD PELVIS W EXAM: CT CHEST PE ABD PELVIS W CLINICAL HISTORY: SOB, elevated D-dimer, weight loss, diffuse abd pain. TECHNIQUE: Imaging Protocol: Axial CT angiography was performed with multi-slice acquisition and m ulti-planar and/or 3D reconstructions. CONTRAST MATERIAL: Intravenous: Omnipaque 350 Contrast volume:100 ml Oral: None COMPARISON: CT CT ABDOMEN PELVIS W from 03/24/2023 FINDINGS: CHEST: PULMONARY ARTERIES: There intraluminal filling defects within multiple right-sided pulmonary arteries consistent with acute pulmonary emboli. Upper lobe and lower lobe right pulmonary arteries are invo lved. There are also filling defects in left upper lobe in the left lower lobe pulmonary arteries. LUNGS: No evidence of pulmonary infarction nor pleural effusions. No confluent infiltrates in the ri ght lung. Mild increased markings in the posterior basal segment left lower lobe. No ominous pulmon juan j nodules. No findings in trachea and mainstem bronchi.. There are no pleural effusions. MEDIASTINUM: There is no hilar nor mediastinal adenopathy. Visualized thyroid unremarkable. CARDIAC: Heart size is normal. There is no pericardial effusion. There is no significant shift of t he interventricular septum.Diameter of the ascending thoracic aorta is prominent, measuring 4 cm. No evidence of dissection. OSSEOUS: No significant osseous lesions.. ABDOMEN: There is no ascites. LIVER: There multiple metastatic lesions throughout the liver. GALLBLADDER/BILIARY: No obvious acute gallbladder pathology. CBD is not dilated. PANCREAS: There is a large expansile a hypodense mass in the pancreas tail which measures 5.5 x 5 cm suspicious for malignancy pancreatic head and uncinate process and pancreatic neck and most of the charito dy appear unremarkable and the pancreatic duct is not dilated. SPLEEN: Spleen is not enlarged. There are no significant intrasplenic lesions. Splenic vein is poorl y visualized and probably thrombosed in the area of the pancreatic mass. The main portal vein and in trahepatic portal veins are patent.. ADRENALS: Small hypodense nodule in the right adrenal gland measuring 6 x 6 mm noted. Either metasta tic or incidental adenoma. KIDNEYS:Parapelvic cysts seen in both kidneys. Small nonobstructive calculus noted in the left kidne y. No solid renal masses. No hydronephrosis. No hydroureter.. ABDOMINAL AORTA: The abdominal aorta is calcified. 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 Common iliac arteries are calcified but not enlarged. LYMPH NODES: There is no retroperitoneal or para-aortic adenopathy. ABDOMINAL WALL/GI: No evidence of significant anterior abdominal wall hernia. No bowel obstruction. There is also thrombosis of the right femoral vein noted. PELVIS: LYMPH NODES: There is no intrapelvic nor inguinal adenopathy. GI: No evidence of appendicitis.No evidence of sigmoid diverticulitis. URINARY BLADDER: No calculi nor masses evident REPRODUCTIVE: Uterus and adnexal regions unremarkable. No free fluid. OSSEOUS: No significant osseous lesions. No acute fractures. IMPRESSION: 1. 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 2. There are multiple metastatic lesions throughout the liver. 3. Multiple bilateral acute pulmonary emboli. No evidence of pulmonary infarction. No pleural effus ions. 4. There is intraluminal thrombus seen in the right common femoral vein, this most probably the sourc e of the pulmonary emboli in this patient. 5. There is no ascites Findings as above. Report called by myself to ER provider. RADIATION DOSE DELIVERED: 909.37mGy.cm Total DLP DATA REPOSITORY: All CT scans at this facility are submitted to the National Radiology Data Registry (NRDR) Dose Index Registry (DIR) with the [employer] (ACR). RADIATION OPTIMIZATION: All CT scans at this facility use at least one of these dose optimization te chniques: automated exposure control; mA and/or kV adjustment per patient size (includes targeted exa ms where dose is matched to clinical indication); or iterative reconstruction.
--- NOTE | 2024-05-13 16:12 | W.ED.GENAD ---
Discharge Plan Discharge Details Chief Complaint: GenMedical Primary Care Provider: Chitra Franks ED Provider: Valeria Vega Home Meds and New Rx's Prescriptions: No Action multivitamin [Daily Multi-Vitamin] Tablet 1 tab PO DAILY aspirin [Aspirin Low-Strength] 81 MG tablet,chewable 81 mg PO DAILY atorvastatin [Lipitor] 10 MG tablet 10 mg PO DAILY hydrochlorothiazide 12.5 MG tablet 12.5 mg PO DAILY Patient Comments: not taking amlodipine [Norvasc] 10 mg Tablet 10 mg PO DAILY Miles Oil-1000 1,000-200 mg Capsule 2 cap PO DAILY cholecalciferol (vitamin D3) [Vitamin D3] 2,000 unit Tablet 2,000 unit PO DAILY Patient Comments: not taking lisinopril 10 mg tablet 10 mg PO DAILY Patient Comments: TAKE 1 TABLET BY MOUTH EVERY DAY HPI General Date/Time Provider Initiated Documentation: 05/13/24 15:42. HPI Narrative: Cheryl is an 78-year-old female with history of T2DM currently being treated with insulin, HLD, and HTN who presents to the emergency department today for evaluation of shortness of breath has been increasing in intensity x 2 months. Shortness of breath is elicited with any exertion, is not accompanied by dizziness/lightheadedness, chest pain, palpitations, or generalized weakness. She does report that she has had black stools for the last 2 days, though is not sure when it started initially. Today she saw PCP Maritza Sorto, had her stool tested and was found to be guaiac positive. She had labs drawn at [facility], was advised by PCP to go to emergency department for evaluation of elevated D-dimer. She does report decreased appetite with associated weight loss. Denies fever/chills, congestion, cough, nausea/vomiting, abdominal pain, dysuria, gum bleeding, easy bruising. She was hospitalized in February for HTN/DM, started on antihypertensives, statin, and metformin. She was recently changed from metformin to glipizide, then most recently to insulin. Blood sugars have been in the low 200s. Fatigue was initially attributed to medication side effects, but she says it has only worsened instead of getting better with med changes. She was seen in the emergency department last week, diagnosed with asymptomatic UTI. She did have an echo which was unremarkable and abdominal ultrasound recently as well. Related Data Home Medications Medication Instructions Recorded Confirmed atorvastatin 10 mg tablet (Lipitor) 10 mg PO DAILY 08/15/14 05/13/24 hydrochlorothiazide 12.5 mg tablet 12.5 mg PO DAILY 08/15/14 05/13/24 aspirin 81 mg chewable tablet 81 mg PO DAILY 08/29/14 05/13/24 (Aspirin Low-Strength) amlodipine 10 mg tablet (Norvasc) 10 mg PO DAILY 09/08/18 05/13/24 cholecalciferol (vitamin D3) 50 2,000 unit PO DAILY 09/08/18 05/13/24 mcg (2,000 unit) tablet (Vitamin D3) salmon oil-omega-3 fatty acids 2 cap PO DAILY 09/08/18 05/13/24 1,000 mg-200 mg capsule (Miles Oil-) multivitamin (Daily Multi-Vitamin 1 tab PO DAILY 08/08/20 05/13/24 tablet) lisinopril 10 mg tablet 10 mg PO DAILY 03/24/23 05/13/24 Allergies Allergy/AdvReac Type Severity Reaction Status Date / Time No Known Allergies Allergy Unverified 03/24/23 14:59 General Stated Complaint: GenMedical BERONICA: 3 Review of Systems Narrative: see HPI Exam Const General: cooperative, healthy appearing, comfortable and no acute distress Nutritional Appearance: thin HENMT Head: normal to inspection General nose exam: external nose normal Eyes Conjunctivae: conjunctival abnormality bilaterally pallor Neck Neck: normal visual inspection Resp Effort & Inspection: normal respiratory effort and able to speak in complete sentences Auscultation: clear to auscultation bilaterally Cardio Rate: regular rate Rhythm: regular rhythm Pulses: radial pulses present and dorsalis pedis present GI Inspection: normal to inspection Palpation: soft, not firm, no guarding, not rigid and tender (diffuse) Auscultation: normal bowel sounds Course Vital Signs Vital signs: Vital Signs Temperature 36.1 C L 05/13/24 15:36 Pulse 99 H 05/13/24 15:36 Respiratory Rate 05/13/24 15:36 Blood Pressure 114/58 L 05/13/24 15:36 Pulse Oximetry 97 05/13/24 15:36 Temperature 36.1 C L 05/13/24 15:36 Temperature Source Tympanic 05/13/24 15:36 Pulse 99 H 05/13/24 15:36 Respiratory Rate 05/13/24 15:36 Blood Pressure 114/58 L 05/13/24 15:36 Blood Pressure Position Sitting 05/13/24 15:36 Pulse Oximetry 97 05/13/24 15:36 Oxygen Delivery Method Room Air 05/13/24 15:36 Oxygen Flow Rate 0 05/13/24 15:36 Pain Level 0 05/13/24 15:36 Medical Decision Making Cheryl is an 78-year-old female with history of T2DM currently being treated with insulin, HLD, and HTN who presents to the emergency department today for evaluation of shortness of breath has been increasing in intensity x 2 months. Shortness of breath is elicited with any exertion, is not accompanied by dizziness/lightheadedness, chest pain, palpitations, or generalized weakness. She does report that she has had black stools for the last 2 days, though is not sure when it started initially. Today she saw PCP Maritza Sorto, had her stool tested and was found to be guaiac positive. She had labs drawn at [facility], was advised by PCP to go to emergency department for evaluation of elevated D-dimer. She does report decreased appetite with associated weight loss. Denies fever/chills, congestion, cough, nausea/vomiting, abdominal pain, dysuria, gum bleeding, easy bruising. She was hospitalized in February for HTN/DM, started on antihypertensives, statin, and metformin. She was recently changed from metformin to glipizide, then most recently to insulin. Blood sugars have been in the low 200s. Fatigue was initially attributed to medication side effects, but she says it has only worsened instead of getting better with med changes. She was seen in the emergency department last week, diagnosed with asymptomatic UTI. She did have an echo which was unremarkable and abdominal ultrasound recently as well. Physical exam remarkable for patient who is comfortable at rest, alert and oriented. Conjunctiva are pale. No obvious bruising. Easy work of breathing, lung sounds clear bilaterally. Normal heart sounds. Abdomen is soft, nondistended, diffusely tender to palpation with normoactive bowel sounds. As stool has already been tested by PCPs office for blood, rectal exam deferred at this time. No obvious pedal edema. DDx includes but is not limited to: PE, pneumonia, CHF less likely, GI bleed, neoplasm I did discuss pt with Maritza Sorto, pt was sent to ED for evaluation of melena w/elevated BUN (concern for upper GI bleed w/ drop in HGB of 3 pts in 10 days), elevated alk phosp (concern for bile duct obstruction/pancreatic), as well as r/o PE; MRCP has been ordered, as well GI referral. I also reviewed previous imaging, including ultrasound results from 05/11/2024, normal-sized liver with no discrete masses, stable mild dilatation of common bile duct. Echo performed on 05/05/2024 was reassuring, EF 60% with normal ventricular and atrial size/function. Chest x-ray on 05/03/2024 was negative, no acute cardiopulmonary findings. I independently interpreted the following tests: EKG reassuring, mild sinus tachycardia with rate 98. PVC noted. Normal OK and QTc. No change from previous on 05/03/2024. CBC performed earlier today at 1410 remarkable for H&H 8.7 and 26.7. CMP reassuring, creatinine and BUN slightly elevated, 1.2 and 25. Alk phos has been gradually increasing the last month, 601 today versus 543 on 05/03/2024 and 579 on 05/11/2024. CT chest/abdomen/pelvis performed, discussed findings with Dr. Roman radiologist. Mass of 5.5 cm x 5 cm noted in pancreatic tail, as well as multiple pulmonary emboli and multiple lesions throughout the liver. A thrombus also noted in right common femoral vein, likely source of PE. Discussed findings with patient. As she has probable GI bleed with PE, recommend inpatient admission. She is agreeable with plan of care. Discussed case with Dr. Kyle, hospitalist. He is agreeable to admit patient. Imaging Data Radiologic Study: Radiologist's impression: Exam(s) CT ABDOMEN PELVIS W EXAM: CT ABDOMEN PELVIS W CLINICAL HISTORY: low abd pain. TECHNIQUE: Imaging Protocol: Axial computed tomography images with coronal and sagittal reformatted images were created and reviewed CONTRAST MATERIAL: Intravenous: Omnipaque-350 100cc Oral: None COMPARISON: CT CT CHEST PE CTA from 06/17/2023 FINDINGS: VISUALIZED LUNG BASES: No nodules nor pleural effusions evident. ABDOMEN: There is no ascites. LIVER: There is mild hepatic steatosis. No discrete focal hepatic lesions nor dilatation of intrahepatic ducts. GALLBLADDER/BILIARY: No obvious gallbladder pathology. CBD is not dilated. PANCREAS: No evidence of pancreatic mass nor dilatation of the pancreatic duct. SPLEEN: Spleen is not enlarged. No obvious intrasplenic lesions. Splenic and portal veins are patent. ADRENALS: There are no significant adrenal masses. KIDNEYS:No cysts evident. No solid renal masses. No calculi nor hydronephrosis.. ABDOMINAL AORTA: Abdominal aorta is heavily calcified not enlarged. There is also prominent calcification evident within the celiac artery and its branches, the SMA, and the bilateral renal arteries. There surgical clips in the aortic region around L1 level. Common iliac arteries are heavily calcified but not enlarged. Left external iliac arteries calcified but not enlarged. Right external iliac artery is not calcified. There is evidence of surgery in the left groin in the region of the femoral artery. LYMPH NODES:There is no retroperitoneal nor paraaortic adenopathy. ABDOMINAL WALL: Evidence of prior surgery. No evidence of significant anterior abdominal wall nor inguinal hernia. GI: There is no evidence of bowel obstruction, free air, nor abscess. There are no ischemic appearing bowel loops. PELVIS: GI: No evidence of appendicitis.No evidence of sigmoid diverticulitis. LYMPH NODES: There is no intrapelvic nor inguinal adenopathy. REPRODUCTIVE: Prostate not enlarged. Seminal vesicles unremarkable. URINARY BLADDER: No calculi nor obvious masses evident OSSEOUS: Generalized osteopenia in the vertebrae but no compression fractures. No facet malalignment. No significant disc space narrowing. IMPRESSION: 1. Heavily calcified abdominal aorta and iliac arteries this extends down the left external iliac artery. There is relative sparing of the right external iliac artery. Evidence of previous surgery in left groin. 2. Heavily calcified abdominal aorta as well as calcification in the celiac artery and its branches and the superior mesenteric artery and inferior mesenteric artery. No ischemic bowel loops identified. No ascites. 3. Evidence of previous abdominal surgery. No evidence of bowel obstruction, free air, nor abscess. 4. If there is a history of ?abdominal angina'' than CT angiography of the abdomen-pelvis can be performed. 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 Fracture of right distal radius (Acute) Status post cataract extraction and insertion of intraocular lens of right eye (Chronic) Status post cataract extraction and insertion of intraocular lens of left eye (Chronic 09/13/18) Optic atrophy, left eye (Chronic) Optic atrophy, right eye (Chronic) Medical History (Updated 05/03/24 @ 12:41 by Evaristo Huggins MD) Essential hypertension Hyperlipidemia Surgical History (Updated 03/24/23 @ 15:35 by Марина Saldana DO) History of cataract surgery Family History (Updated 08/16/20 @ 08:46 by Elo Parnell MD) Brother Cancer Nasal cancer Diabetes Brother Cancer Kidney cancer Heart disease Other Hyperlipidemia Hypertension Social History (Updated 08/16/20 @ 08:48 by Elo Parnell MD) Smoking/Tobacco Use Status: Never Smoking risk assessment performed?: Yes Alcohol Intake: never Drug use: Never Household members: spouse and other Details: peter Number of Children: 4 current occupation: retired. lives in [place] during winter Do you feel safe at home: Yes Do you feel safe in your relationship?: Yes Female Reproductive History Menstrual Menopause type: natural History History 4 Para Hx # Term Pregnancies 4 Multiple births Hx # Pregnancies Ectopic pregnancies AB induced Hx Number of Living Children AB spontaneous
[2024-05-13 16:42] LABS: ALT 40 U/L (14-59); AST 40 U/L (15-37); Albumin 3.3 g/dL (3.4-5.0); Alkaline Phosphatase 601 U/L (46-116); Anion Gap 13.7 mmol/L (3-11); BUN 25 mg/dL (7-18); Bilirubin, Total 0.55 mg/dL (0.2-1.0); CO2 23.3 mmol/L (21.0-32.0); CREATININE 1.2 mg/dL (0.55-1.02); Calcium 9.6 mg/dL (8.5-10.1); Chloride 98 mmol/L (98-107); Estimated GFR 45.76 (mL/min/1.73m2); Glucose 273 mg/dL (74-106); Potassium 4.2 mmol/L (3.5-5.1); Sodium 135 mmol/L (136-145); Total Protein 7.3 g/dL (6.4-8.2)
[2024-05-13] MEDS: Normal Saline Flush 10 ML SYR IVP (17:18)
[2024-05-13] MEDS: Normal Saline - Diluent 50 ML VIAL IJ (17:18)
[2024-05-13] MEDS: Omnipaque 350 MG/ML 100 ML BTL IJ (17:19)
[2024-05-13 17:45] LABS: HCT 26.7 % (36.0-46.0); HGB 8.5 g/dL (11.2-15.7); MCH 29.1 pg (27.0-33.0); MCHC 31.8 % (32.0-36.0); MCV 91 fL (80-95); MPV 11.8 fL (8.0-11.0); Platelet Count 305 10^3/uL (130-400); RBC 2.92 10^6/uL (3.93-5.22); RDW 15.3 % (11.7-14.6); RDW-SD 50.4 fL; WBC 10.87 10^3/uL (4.4-10.8)
--- NOTE | 2024-05-13 20:50 | W.PM.HP.N ---
Date of service: 05/13/24 Time of Service: 20:50 Assessment and Plan Assessment and plan (1) Pulmonary embolus: Start date: 05/13/24 Status: Acute Assessment and plan: This is an 78-year-old lady with a history from September 2023 to present weight loss and over the last 2 months progressive dyspnea upon exertion and weakness. She also has been losing weight over the last 6 months which was unexplained. She has lost about 35 pounds. She has anorexia for the last 2 months and with her progressive exertional symptoms and weakness, she was evaluated and found to have bilateral pulmonary emboli. These may be more chronic with acute symptoms not severe and no evidence of RV strain. Her troponins are negative. Consultation with cardiology at [facility] did recommend holding further anticoagulation until source of anemia with probable GI blood loss will be discovered. He was not opposed to interventional radiology performing IVC as an option with patient having right common femoral and splenic vein thrombosis as well. She is most likely hypercoagulable because of her pancreatic mass which is new in diagnosis and appears to have metastasized to the liver. Patient is a full code but may consider changing of the status and not being aggressive in treating her pancreatic mass if prognosis is poor with treatment having severe side effects. Her labs is traveling to [place] yearly with her with her home locally in [place]. Qualifiers: Pulmonary embolism type: multiple subsegmental (without acute cor pulmonale) Qualified Code(s): I26.94 - Multiple subsegmental pulmonary emboli without acute cor pulmonale (2) Pancreatic mass: Start date: 05/13/24 Status: Acute Assessment and plan: Patient has a 5 cm pancreatic mass and the tail of the pancreas which may explain her recent symptoms of anorexia with weight loss, hypercoagulability and worsening diabetes as well as blood pressure. She also has elevated liver function test most likely secondary to metastatic lesions seen on CT. Once stabilized from her acute pulmonary emboli and blood loss this appears to be GI source, this can be further investigated tissue and treatment options. The patient may not want treatment if prognosis is poor. For now she is a full code. (3) Liver masses: Start date: 05/13/24 Status: Acute Assessment and plan: Most likely metastatic lesion from the pancreatic mass. Elevated liver function test with alkaline phosphatase 601 and AST 40 but normal bilirubin. Trend labs. (4) Anemia due to GI blood loss: Start date: 05/13/24 Status: Acute Assessment and plan: Patient has acute anemia drop in her hemoglobin by 3 g/dL over the last couple weeks from 11 to 8.7 g/dL. After admitted with repeat lab, she has dropped another 2 g/dL as just above 7 g/dL. She is not symptomatic. My recommendations from GI at [facility] patient will be transfused 1 unit of packed red blood cells and if she recovers nicely, GI thinks that he most likely is not having an acute GI bleed as cause of her presentation with anemia. Heme positive stool with brown formed stool and mitigate need for further investigation with endoscopy but anticoagulation with heparin would not be contraindicated from their point of view. They do defer to cardiology to withhold anticoagulation while evaluating with endoscopies. Patient would desire colonoscopy at [facility] but EGD will be performed locally. (5) Hyponatremia: Start date: 05/13/24 Status: Acute Assessment and plan: Most likely associated with metastatic cancer and very mild. Gentle IV hydration with elevated creatinine though this is chronic and trend labs. (6) Diabetes: Status: Chronic Assessment and plan: Patient has worsening of hypoglycemia since September 2023 advancing therapy slowly but now on basal insulin twice daily. During hospital stay she will be able, with before meals and at bedtime with moderate sliding scale short acting insulin. Long-term she may need to remain on insulin with her pancreatic pathology. Qualifiers: Chronic kidney disease stage: stage 3 (moderate) Chronic kidney disease stage 3 subtype: stage 3a (GFR 45-59) Diabetes mellitus complication detail: with chronic kidney disease Diabetes mellitus complication status: with kidney complications Diabetes mellitus half-way insulin use: without ocean transportation intermediary use Diabetes mellitus type: type 2 Qualified Code(s): E11.22 - Type 2 diabetes mellitus with diabetic chronic kidney disease; N18.31 - Chronic kidney disease, stage 3a (7) Essential hypertension: Assessment and plan: Patient's systolic blood pressure was slightly low in the ED and she did take her 3 antihypertensive the morning of admission the patient not remembering the hydrochlorothiazide. Continue outpatient medical therapy with adjustment to blood pressure. (8) Hyperlipidemia: Assessment and plan: Continue statin therapy. Withhold aspirin therapy. Qualifiers: Hyperlipidemia type: mixed hyperlipidemia Qualified Code(s): E78.2 - Mixed hyperlipidemia History of Present Illness History of Present Illness Chief Complaint: Weakness with shortness of breath for 2 months Narrative: This is an 78-year-old female patient usually avoids going to physicians office recently being seen at her PCPs office by another provider with concerns about abnormal lab with further investigations revealing progressive anemia and elevated liver function test with patient having a 35 pound weight loss since September 2023 with mostly weight loss in the last 2 months. She also has had increasing weakness and shortness of breath mostly with exertion over the last several weeks. General The palpitations or chest pain and felt dizzy. She was generally weak but had no abdominal pain. Her appetite has been down for the last 2 months as well. The patient was having escalating uncontrolled diabetes and had been on metformin and glipizide which was thought to have been causing some of her symptoms. She has lost weight since her diabetes was worsened and being treated in September 2023. She does go to [place] from September to February and will return in February was having more evaluations with this reviewed prior to this admission by another provider at her PCPs office prompting evaluation. Did have an ultrasound which was unrevealing except for echogenic liver but does not do the tail of the pancreas. She had a similar evaluation she was in [place] with negative ultrasound of the abdomen. At that time she will be admitted for uncontrolled hypertension. With patient having follow-up labs the day of admission she was noted to be more anemic with a positive D-dimer and was sent to the ED for further evaluation for PE with respiratory symptoms. CT of the chest, abdomen pelvis did reveal bilateral pulmonary emboli with no RV strain confirmed by POCUS in the ED, a 5 cm mass in the tail of the pancreas with previously known with metastatic lesions appearing in the liver not seen on previous ultrasound of the abdomen twice this year. She also had a venous thrombosis in the right common femoral artery and thrombus in the splenic vein. Patient was initiated on Lovenox 60 mg subcu every 12 hours and admitted for further treatment and evaluation with her anemia being trended having had her hemoglobin dropped from 11 down to 8 g/dL over the last 2 weeks. She did have an elevated RDW but MCV was normal and lab evaluation for deficiencies showed minimal iron deficiency with elevated ferritin and B12. The patient was requiring oxygen and not tachycardic with her PE or anemia. She was somewhat difficult and that she had a large pancreatic mass and so there is no tissue type did appear to be a pancreatic cancer with metastases to the liver. This would explain her weight loss and worsening diabetes. Her anemia was not quite explained except that she had heme positive stools with rectal exam upon admission revealed brown formed stools which were heme positive still. There was some history of black stool reported by her but the patient had not seen this. due to not having abdominal pain. As stated she was directed. After patient was admitted with initiation of Lovenox, surgery was consulted with Dr. Tolbert recommending consultation with [facility] which was done. I did speak to cardiology, Dr. Alvarado who recommended not pursuing continued anticoagulation until her invalid stools and anemia was further investigated. He thought that she was stable with her acute PE and in fact with a 2-month history of shortness of breath she may have had this for a while. The D-dimer could be is elevated because of her cancer as well. He did comment on placement of an IVC as Dr. Tolbert and recommended with interventional radiology at the safer treatment of her risk ongoing PE and recurrent PE than anticoagulation with her anemia and blood in stools. I also discussed the case with gastroenterology, Dr. Sahni who stated that the positive Hemoccult, stool was brown and soft and this is why she did not define GI bleed. He did agree that it was most likely blood loss anemia and did appear to be sudden. He agreed with endoscopies. EGD and colonoscopy in timely fashion but 1 option would be to continue anticoagulation with heparin infusion which can be held more quickly if there were complications with overt GI bleed defined by loose stools or bright red blood and clinical blood loss documented. When he did find out cardiology recommended holding anticoagulation, he thought that if the patient was deemed safe enough to not anticoagulate until further evaluation with, that would also be his recommendation. I had a long discussion with the patient about treatment options and she was agreeable to withholding anticoagulation in any form at this point awaiting endoscopies and as per GI recommendations she will receive 1 unit of packed red blood cells and if she had a brisk response to this given the further evidence that she was not having an acute GI bleed. The patient was has not to have a colonoscopy locally and would like to have this test performed at [facility] if required. She is okay with EGD at this facility which Dr. Tolbert in consultation stating that he could perform the morning of 05/15/2024. The patient remains a full code. She is considering not treating her pancreatic mass if cancerous and metastatic unless there are reasonable options. Review of Systems Narrative: 13 point review of systems positive for 35 pound weight loss within the last 6 months, anorexia with abdominal pain or change in bowel habits other than noting black stools, edema over right leg otherwise as per HPI or stable. PFSH All Active Problems Anemia due to GI blood loss (Acute) Hyponatremia (Acute) Anemia due to GI blood loss (Acute) Pulmonary emboli (Chronic) Pancreatic mass (Acute) Liver lesion (Acute) Liver masses (Acute) Pancreatic mass (Acute) Pulmonary embolus (Acute) Acute UTI (Acute) Hyperglycemia (Acute) Fatigue (Acute) Malodorous urine (Acute) Pessary maintenance (Acute) Successful placement of [place]horn pessaries had complications with fecal incontinence with pessary in place Constipation (Chronic) Uses MiraLAX Diabetes (Chronic) 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 Fracture of right distal radius (Acute) Status post cataract extraction and insertion of intraocular lens of right eye (Chronic) Status post cataract extraction and insertion of intraocular lens of left eye (Chronic 09/13/18) Optic atrophy, left eye (Chronic) Optic atrophy, right eye (Chronic) Medical History Essential hypertension Hyperlipidemia Surgical History History of cataract surgery Family History Brother Cancer Nasal cancer Diabetes Brother Cancer Kidney cancer Heart disease Other Hyperlipidemia Hypertension Social History Smoking/Tobacco Use Status: Never Smoking risk assessment performed?: Yes Alcohol Intake: never Drug use: Never Household members: spouse and other Details: peter Housing: house Number of Children: 4 current occupation: retired. lives in [place] during winter Do you feel safe at home: Yes Do you feel safe in your relationship?: Yes Female Reproductive History Menstrual Menopause type: natural History History 4 Para Hx # Term Pregnancies 4 Multiple births Hx # Pregnancies Ectopic pregnancies AB induced Hx Number of Living Children AB spontaneous Meds Allergies and Home Medications Allergies Allergy/AdvReac Type Severity Reaction Status Date / Time No Known Allergies Allergy Unverified 03/24/23 14:59 Home Medications Medication Instructions Recorded Confirmed Type atorvastatin 10 mg tablet (Lipitor) 10 mg PO DAILY 08/15/14 05/13/24 History hydrochlorothiazide 12.5 mg tablet 12.5 mg PO DAILY 08/15/14 05/13/24 History aspirin 81 mg chewable tablet 81 mg PO DAILY 08/29/14 05/13/24 History (Aspirin Low-Strength) amlodipine 10 mg tablet (Norvasc) 10 mg PO DAILY 09/08/18 05/13/24 History cholecalciferol (vitamin D3) 50 2,000 unit PO DAILY 09/08/18 05/13/24 History mcg (2,000 unit) tablet (Vitamin D3) salmon oil-omega-3 fatty acids 2 cap PO DAILY 09/08/18 05/13/24 History 1,000 mg-200 mg capsule (Cope Oil-) multivitamin (Daily Multi-Vitamin 1 tab PO DAILY 08/08/20 05/13/24 History tablet) lisinopril 10 mg tablet 10 mg PO DAILY 03/24/23 05/13/24 History Exam Narrative Exam Narrative: General: Patient appears appropriate for age, thin but not cachectic, very hard of hearing and in no acute distress. She is alert and oriented x 3. She does appear chronically ill. HEENT: Normocephalic, wearing bilateral hearing aids. Eyes with pupils equal and reactive light symmetrically, extraocular movement intact and sclera anicteric. Oropharynx with moist mucosa. Injection. Neck: Supple without JVD. Back: Kyphotic without CVA tenderness. Lungs: Variation clear to auscultation With no focalizing rales or rhonchi. No expiratory wheeze. Breast: Exam deferred. Heart: Regular rate and rhythm with 2/6 to 3/6 systolic murmur sternal border and no appreciable gallop or rub. Abdomen: Normal contour and soft to palpation with no palpable hepatosplenomegaly and no tenderness or guarding. No discrete mass palpated over left upper quadrant. Bowel sounds positive all quadrants. Genitalia/rectal: Rectal exam did reveal decreased sphincter tone, balls of formed, brown stool in rectal vault without gross blood but heme positive. No rectal masses. No vaginal discharge. Extremities: Nonpitting edema more in the right leg than left with no clubbing or cyanosis. Alert and fair range of motion. Fair capillary refill. Skin: Pale, warm and dry. No bruising. Neuro: Cranial nerves II through XII grossly intact with decreased hearing acuity, no focalizing motor deficits and no tremor. Psych: Normal affect and mood. No abnormal thought processes. Remote and recent memory grossly intact. Results Imaging Imaging Studies: EXAM: CT CHEST PE ABD PELVIS W CLINICAL HISTORY: SOB, elevated D-dimer, weight loss, diffuse abd pain. TECHNIQUE: Imaging Protocol: Axial CT angiography was performed with multi-slice acquisition and multi-planar and/or 3D reconstructions. CONTRAST MATERIAL: Intravenous: Omnipaque 350 Contrast volume:100 ml Oral: None COMPARISON: CT CT ABDOMEN PELVIS W from 03/24/2023 FINDINGS: CHEST: PULMONARY ARTERIES: There intraluminal filling defects within multiple right-sided pulmonary arteries consistent with acute pulmonary emboli. Upper lobe and lower lobe right pulmonary arteries are involved. There are also filling defects in left upper lobe in the left lower lobe pulmonary arteries. LUNGS: No evidence of pulmonary infarction nor pleural effusions. No confluent infiltrates in the right lung. Mild increased markings in the posterior basal segment left lower lobe. No ominous pulmonary nodules. No findings in trachea and mainstem bronchi.. There are no pleural effusions. MEDIASTINUM: There is no hilar nor mediastinal adenopathy. Visualized thyroid unremarkable. CARDIAC: Heart size is normal. There is no pericardial effusion. There is no significant shift of the interventricular septum.Diameter of the ascending thoracic aorta is prominent, measuring 4 cm. No evidence of dissection. OSSEOUS: No significant osseous lesions.. ABDOMEN: There is no ascites. LIVER: There multiple metastatic lesions throughout the liver. GALLBLADDER/BILIARY: No obvious acute gallbladder pathology. CBD is not dilated. PANCREAS: There is a large expansile a hypodense mass in the pancreas tail which measures 5.5 x 5 cm suspicious for malignancy pancreatic head and uncinate process and pancreatic neck and most of the body appear unremarkable and the pancreatic duct is not dilated. SPLEEN: Spleen is not enlarged. There are no significant intrasplenic lesions. Splenic vein is poorly visualized and probably thrombosed in the area of the pancreatic mass. The main portal vein and intrahepatic portal veins are patent.. ADRENALS: Small hypodense nodule in the right adrenal gland measuring 6 x 6 mm noted. Either metastatic or incidental adenoma. KIDNEYS:Parapelvic cysts seen in both kidneys. Small nonobstructive calculus noted in the left kidney. No solid renal masses. No hydronephrosis. No hydroureter.. ABDOMINAL AORTA: The abdominal aorta is calcified. There is a mild fusiform infrarenal abdominal aortic aneurysm with maximum diameter 2.4 cm. Common iliac arteries are calcified but not enlarged. LYMPH NODES: There is no retroperitoneal or para-aortic adenopathy. ABDOMINAL WALL/GI: No evidence of significant anterior abdominal wall hernia. No bowel obstruction. There is also thrombosis of the right femoral vein noted. PELVIS: LYMPH NODES: There is no intrapelvic nor inguinal adenopathy. GI: No evidence of appendicitis.No evidence of sigmoid diverticulitis. URINARY BLADDER: No calculi nor masses evident REPRODUCTIVE: Uterus and adnexal regions unremarkable. No free fluid. OSSEOUS: No significant osseous lesions. No acute fractures. IMPRESSION: 1. 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 2. There are multiple metastatic lesions throughout the liver. 3. Multiple bilateral acute pulmonary emboli. No evidence of pulmonary infarction. No pleural effusions. 4. There is intraluminal thrombus seen in the right common femoral vein, this most probably the source of the pulmonary emboli in this patient. 5. There is no ascites EXAM: US ABDOMEN LIMITED CLINICAL HISTORY: ALKALINE PHOSPHATASE ABOVE REFERENCE RANGE, R74.8 TECHNIQUE: Ultrasound abdomen performed using standard protocol. COMPARISON: CT CT ABDOMEN PELVIS W from 03/24/2023 FINDINGS: LIVER: Normal size, 13.5 cm in length. Heterogeneous echotexture.. No focal liver lesions are seen. GALLBLADDER: No evidence of cholelithiasis. No evidence of wall thickening. No pericholecystic fluid identified. GARZA'S SIGN: Negative. BILIARY SYSTEM: Common bile duct measures 10 millimeters unchanged from prior CT Right kidney. Normal in size. No evidence of renal calculi. No evidence of hydronephrosis. No renal mass identified. PANCREAS: Normal where visualized. ABDOMINAL AORTA AND IVC: Visualized portions normal caliber. ASCITES: None seen. IMPRESSION: Normal size liver with heterogeneous echotexture. No discrete visible mass. Stable mild dilatation of the common bile duct. Labs 05/13/24 21:18 05/13/24 15:52 Labs: Laboratory Results - last 24 hr 05/13/24 15:52 WBC 10.87 H RBC 2.92 L Hgb 8.5 L Hct 26.7 L MCV 91 MCH 29.1 MCHC 31.8 L RDW 15.3 H Plt Count 305 MPV 11.8 H Sodium 135 L Potassium 4.2 Chloride 98 Carbon Dioxide 23.3 Anion Gap 13.7 H BUN 25 H Creatinine 1.2 H Est GFR (CKD-EPI 2020) 45.76 Glucose 273 H Calcium 9.6 Total Bilirubin 0.55 AST 40 H ALT 40 Alkaline Phosphatase 601 H Total Protein 7.3 Albumin 3.3 L Last Vital Signs Temp 36.1 C L 05/13/24 16:15 Pulse 99 H 05/13/24 16:15 Resp 15 05/13/24 16:15 BP 114/58 L 05/13/24 16:15 Pulse Ox 97 05/13/24 16:15 Time Spent Time spent with Patient: >75 minutes Time was spent: preparing to see the patient(eg.review tests), obtaining and/or reviewing separately otained hiistory, ordering medications,tests, procedures, referring, communicating with other health healthcare or medical, indepentently interpreting results, counseling the patient, care coordination and other (Reviewing case with [facility] cardiology and GI)
[2024-05-13] MEDS: Enoxaparin 60 MG/0.6 ML SYR SC (20:51)
[2024-05-13 20:59] LABS: Iron 34 ug/dL (50-170)
[2024-05-13 21:04] LABS: Magnesium 1.9 mg/dL (1.8-2.4); Troponin I < 50 ng/L (< or =60)
[2024-05-13 21:20] LABS: INR 1.2 (0.9-1.1); PTT Activated 21.7 sec (23.6-32.8)
[2024-05-13 21:26] LABS: Ferritin 242 ng/mL (8-252)
[2024-05-13 21:27] LABS: HCT 22.2 % (36.0-46.0); HGB 7.2 g/dL (11.2-15.7); MCHC 32.4 % (32.0-36.0); MCV 90 fL (80-95); MPV 10.9 fL (8.0-11.0); Platelet Count 214 10^3/uL (130-400); RBC 2.48 10^6/uL (3.93-5.22); RDW-SD 49.2 fL; WBC 6.54 10^3/uL (4.4-10.8)
[2024-05-13 21:27] LABS: Vitamin B12 > 2000 pg/mL (193-986)
[2024-05-13 21:46] LABS: Lab Add On Test DONE
--- NOTE | 2024-05-13 21:53 | W.EDPROG ---
Date of service: 05/13/24 Time of Service: 21:54 Medical Decision Making I completed a reassuring bedside echocardiogram of this patient. Quality:SDOH Health Related Social Needs: No Data to Display Discharge Plan Disposition Patient Disposition: Admit to [facility] Discharge Details Clinical Impression: Liver lesion, Pancreatic mass, Pulmonary emboli Primary Care Provider: Chitra Franks ED Provider: Valeria Vega Home Meds and New Rx's Prescriptions: No Action multivitamin [Daily Multi-Vitamin] Tablet 1 tab PO DAILY aspirin [Aspirin Low-Strength] 81 MG tablet,chewable 81 mg PO DAILY atorvastatin [Lipitor] 10 MG tablet 10 mg PO DAILY hydrochlorothiazide 12.5 MG tablet 12.5 mg PO DAILY Patient Comments: not taking amlodipine [Norvasc] 10 mg Tablet 10 mg PO DAILY [place] Oil-1000 1,000-200 mg Capsule 2 cap PO DAILY cholecalciferol (vitamin D3) [Vitamin D3] 2,000 unit Tablet 2,000 unit PO DAILY Patient Comments: not taking lisinopril 10 mg tablet 10 mg PO DAILY Patient Comments: TAKE 1 TABLET BY MOUTH EVERY DAY POCUS Exam (ED) Limited Cardiac Exam DATE OF EXAM: 05/13/24 TIME OF EXAM: 21:54 PROVIDER THAT PERFORMED THE STUDY: Wellington Alejandro IS THIS A REPEAT EXAM DURING THIS ENCOUNTER: no REASON FOR EXAM: Dyspnea VISUALIZED STRUCTURES: Four Chambers, Left ventricle and LVOT VIEW OBTAINED: Apical 4-Chamber, Parasternal long-axis and Subxiphoid PERTINENT FINDINGS/IMPRESSION: No pericardial effusion and No RV dilation DIFFERENTIAL DIAGNOSES: Aortic outflow track less than 4 cm, good squeeze, RV less than LV, no significant pericardial effusion. Exam complete
[2024-05-13 22:00] LABS: Troponin I < 50 ng/L (< or =60)
[2024-05-13] MEDS: Normal Saline 1,000 ML 100 ML IV (22:31)
[2024-05-14] VITALS (12 sets, daily range): BP systolic 119–151; BP diastolic 57–77; PULSE 81–90; RESP 16–20; TEMP 36.6–37.4; O2SAT 98–100
[2024-05-14] MEDS: Pantoprazole 40 MG VIAL IVP ×2 (01:11→13:32)
[2024-05-14] MEDS: Atorvastatin 10 MG TAB PO (01:16)
[2024-05-14 01:47] LABS: Troponin I < 50 ng/L (< or =60)
[2024-05-14 04:54] LABS: Bilirubin Negative (Negative); Blood Negative (Negative); Clarity Clear (Clear); Glucose 500 mg/dL (Negative); Ketones Negative (Negative); Leukocyte Esterase Negative (Negative); Nitrite Negative (Negative); Specific Gravity 1.015 (1.005-1.025); Urobilinogen 0.2 mg/dL (Up to 0.2); pH 5.5 (5-8)
[2024-05-14] MEDS: Cholecalciferol (Vitamin D3) 1,000 UNIT TAB 2000 UNITS PO (08:33)
[2024-05-14] MEDS: Insulin Aspart 300 UNITS/3 ML PEN SC ×3 (08:33→17:03)
[2024-05-14] MEDS: Omega-3 Fatty Acids 1000 MG CAP 2000 MG PO (08:33)
[2024-05-14] MEDS: Multivitamin TAB 1 TAB PO (08:33)
[2024-05-14] MEDS: Normal Saline Flush 10 ML SYR IVP ×3 (08:34→15:52)
--- NOTE | 2024-05-14 10:02 | W.SURGCON ---
Date of service: 05/14/24 Time of Service: 10:02 Assessment and Plan Assessment and plan (1) Pulmonary embolus: Status: Acute Assessment and plan: Patient unfortunate 78-year-old white female with a history of diabetes and hyperlipidemia who presented with weakness and shortness of breath. As well as presence of bilateral pulmonary emboli possibly secondary to DVT. She is also found to have multiple lesions in her liver most likely metastatic disease. She also has weight loss probably explained by her underlying malignant disease. Patient will need to be anticoagulated due to her pulmonary emboli however because of the risk of GI bleed and the fact that she was suspected of having melena there is concern about starting her on therapeutic Lovenox. Surgical consult was placed regarding need for EGD to rule out acute GI bleed. Attempts to transfer the patient to a tertiary center were unsuccessful during the night and the patient was admitted here to the hospital where I saw her this morning. I had a long discussion with the patient and her about all the above findings and told them that at some point she will need to have transferred to a tertiary center for liver biopsy to establish the diagnosis and the type of cancer as well as the possible need for IVC filter placement. I talked to them at that possible need for EGD to rule out the possibility of an upper GI bleed and explained the procedure to them and she agreed to proceed. Patient had breakfast this morning and will plan to do the EGD tomorrow morning. If there is no evidence of active upper GI bleed the patient can be therapeutically anticoagulated for her underlying DVT and pulmonary embolism. I also discussed with the patient the overall risks with her underlying conditions and told her and her to start thinking about long-term goals of treatment. If this turns out to be pancreatic cancer as suspected she is not a surgical candidate with liver mets and will not be suitable for radiation as well. She may be a candidate for some type of chemotherapy or immunotherapy. Plan was discussed with the patient and her as well as with the admitting physician. Plan is for EGD tomorrow morning. All questions answered. Qualifiers: Pulmonary embolism type: multiple subsegmental (without acute cor pulmonale) Qualified Code(s): I26.94 - Multiple subsegmental pulmonary emboli without acute cor pulmonale (2) Pancreatic mass: Status: Acute (3) Liver masses: Status: Acute (4) Diabetes: Status: Chronic Qualifiers: Diabetes mellitus type: type 2 Diabetes mellitus [facility] insulin use: without [facility] use Diabetes mellitus complication status: with kidney complications Diabetes mellitus complication detail: with chronic kidney disease Chronic kidney disease stage: stage 3 (moderate) Chronic kidney disease stage 3 subtype: stage 3a (GFR 45-59) Qualified Code(s): E11.22 - Type 2 diabetes mellitus with diabetic chronic kidney disease; N18.31 - Chronic kidney disease, stage 3a (5) Chronic disease anemia: Status: Acute History of Present Illness History of Present Illness Chief Complaint: Shortness of breath, weakness. Narrative: Patient is a pleasant 78-year-old female with a history of insulin requiring diabetes, hypertension and hyperlipidemia who presented to her PCP with. She was started and had shortness of breath quick workup was done and the patient was referred to the emergency room at [facility] for evaluation. Workup in the emergency room showed evidence of severe anemia with her PCV currently at 22%. There was questionable history of possible melena however digital rectal exam done by the admitting physician without evidence of melena. She did have a guiac positive stool. During her evaluation in the emergency room she did have CT scan of the chest abdomen and pelvis with several findings including the presence of what appears to be bilateral acute pulmonary emboli with possible splenic vein thrombosis and right femoral vein thrombosis. CT of the abdomen showed the presence of what appears to be a large cystic distal pancreatic mass in the tail of the pancreas as well as several foci in the liver which most likely appear to represent metastatic disease. I have personally reviewed the CT and agree with these findings. Patient was given a dose of Lovenox however because of the danger of continuing anticoagulation in the setting of possible GI bleed attempts were made to transfer her to a tertiary center for possible need for IVC filter as well as biopsy of her liver lesions to document the type of her cancer. Transfer was not done and the patient was admitted to the hospitalist service here and a surgical consult was placed regarding possible need for upper GI endoscopy to rule out a source for upper GI bleed. Of note patient had never had an EGD and she had a colonoscopy done over 20 years ago. She denies seeing any blood in her stools. Consults Consult date: 05/14/24 Review of Systems Constitutional Constitutional: Reports as per HPI, Reports fatigue, Reports weakness and Reports weight loss Cardiovascular Cardiovascular: Reports as per HPI, Reports system reviewed and no additional complaints, except as documented and Reports dyspnea Respiratory Respiratory: Reports as per HPI and Reports dyspnea Gastrointestinal Gastrointestinal: Reports as per HPI and Reports system reviewed and no additional complaints, except as documented Genitourinary Genitourinary: Reports system reviewed and no additional complaints, except as documented Neurologic Neurologic: Reports weakness Endocrine Endocrine: Reports fatigue PFSH All Active Problems (Updated 05/14/24 @ 10:17 by Justin Tolbert MD) Chronic disease anemia (Acute) Anemia due to GI blood loss (Acute) Hyponatremia (Acute) Anemia due to GI blood loss (Acute) Pulmonary emboli (Chronic) Pancreatic mass (Acute) Liver lesion (Acute) Liver masses (Acute) Pancreatic mass (Acute) Pulmonary embolus (Acute) Acute UTI (Acute) Hyperglycemia (Acute) Fatigue (Acute) Malodorous urine (Acute) Pessary maintenance (Acute) Successful placement of Gellhorn pessaries had complications with fecal incontinence with pessary in place Constipation (Chronic) Uses MiraLAX Diabetes (Chronic) 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 Fracture of right distal radius (Acute) Status post cataract extraction and insertion of intraocular lens of right eye (Chronic) Status post cataract extraction and insertion of intraocular lens of left eye (Chronic 09/13/18) Optic atrophy, left eye (Chronic) Optic atrophy, right eye (Chronic) Medical History Essential hypertension Hyperlipidemia Surgical History History of cataract surgery Family History Brother Cancer Nasal cancer Diabetes Brother Cancer Kidney cancer Heart disease Other Hyperlipidemia Hypertension Social History Smoking/Tobacco Use Status: Never Smoking risk assessment performed?: Yes Alcohol Intake: never Drug use: Never Household members: spouse and other Details: peter Housing: house Number of Children: 4 current occupation: retired. lives in [place] during winter Do you feel safe at home: Yes Do you feel safe in your relationship?: Yes Female Reproductive History Menstrual Menopause type: natural History History 4 Para Hx # Term Pregnancies 4 Multiple births Hx # Pregnancies Ectopic pregnancies AB induced Hx Number of Living Children AB spontaneous Exam Narrative Exam Narrative: Patient is awake and alert, no acute distress. There is evidence of recent weight loss. Patient is somewhat anxious, is at the bedside. Head and neck exam shows evidence of anemia in the sclera, no jaundice. Neck is supple with no lymphadenopathy, no masses. Chest shows bilateral clear breath sounds to auscultation, good lung expansion. Abdomen is soft and nondistended. No abdominal tenderness, no masses, no skin changes, no hernias. Normal bowel sounds. Digital rectal exam not performed. Examination of the lower extremities shows no evidence of edema with good femoral pulses. Results Last Vital Signs Temp 98.8 F 05/14/24 09:15 Pulse 90 05/14/24 09:15 Resp 18 05/14/24 09:15 BP 137/61 05/14/24 09:15 Pulse Ox 100 05/14/24 09:15 Labs 05/13/24 21:18 05/13/24 15:52 Labs: Laboratory Results - last 24 hr 05/13/24 05/13/24 05/13/24 15:52 15:53 20:50 WBC 10.87 H RBC 2.92 L Hgb 8.5 L Hct 26.7 L MCV 91 MCH 29.1 MCHC 31.8 L RDW 15.3 H Plt Count 305 MPV 11.8 H PT 12.0 H INR 1.2 H APTT 21.7 L Sodium 135 L Potassium 4.2 Chloride 98 Carbon Dioxide 23.3 Anion Gap 13.7 H BUN 25 H Creatinine 1.2 H Est GFR (CKD-EPI 2020) 45.76 Glucose 273 H Calcium 9.6 Magnesium 1.9 Iron 34 L Ferritin 242 Total Bilirubin 0.55 AST 40 H ALT 40 Alkaline Phosphatase 601 H Troponin I < 50 Total Protein 7.3 Albumin 3.3 L Vitamin B12 > 2000 H Urine Color Urine Clarity Urine pH Ur Specific [place] Urine Protein Urine Ketones Urine Blood Urine Nitrite Urine Bilirubin Urine Urobilinogen Ur Leukocyte Esterase Urine Glucose Add-On Test Request ABO/Rh A Positive Blood Type Recheck Cancelled Antibody Screen NEGATIVE Crossmatch See Detail 05/13/24 05/13/24 05/14/24 21:18 21:41 01:15 WBC 6.54 RBC 2.48 L Hgb 7.2 L Hct 22.2 L MCV 90 MCH 29.0 MCHC 32.4 RDW 15.0 H Plt Count 214 MPV 10.9 PT INR APTT Sodium Potassium Chloride Carbon Dioxide Anion Gap BUN Creatinine Est GFR (CKD-EPI 2020) Glucose Calcium Magnesium Iron Ferritin Total Bilirubin AST ALT Alkaline Phosphatase Troponin I < 50 < 50 Total Protein Albumin Vitamin B12 Urine Color Urine Clarity Urine pH Ur Specific [place] Urine Protein Urine Ketones Urine Blood Urine Nitrite Urine Bilirubin Urine Urobilinogen Ur Leukocyte Esterase Urine Glucose Add-On Test Request DONE ABO/Rh Blood Type Recheck Antibody Screen Crossmatch 05/14/24 05/14/24 03:25 04:36 WBC RBC Hgb Hct MCV MCH MCHC RDW Plt Count MPV PT INR APTT Sodium Potassium Chloride Carbon Dioxide Anion Gap BUN Creatinine Est GFR (CKD-EPI 2020) Glucose Calcium Magnesium Iron Ferritin Total Bilirubin AST ALT Alkaline Phosphatase Troponin I Total Protein Albumin Vitamin B12 Urine Color Yellow Urine Clarity Clear Urine pH 5.5 Ur Specific [place] 1.015 Urine Protein Negative Urine Ketones Negative Urine Blood Negative Urine Nitrite Negative Urine Bilirubin Negative Urine Urobilinogen 0.2 Ur Leukocyte Esterase Negative Urine Glucose 500 H Add-On Test Request ABO/Rh Blood Type Recheck A Positive Antibody Screen Crossmatch Imaging Abdomen CT scan report/results: report reviewed and image reviewed CT scan - chest: report reviewed and image reviewed
[2024-05-14] MEDS: amLODIPine 10 MG TAB 5 MG PO (10:34)
[2024-05-14] MEDS: Lisinopril 20 MG TAB 40 MG PO (10:34)
[2024-05-14] MEDS: Normal Saline 1,000 ML 100 ML IV (10:41)
[2024-05-14 10:51] LABS: ALT 36 U/L (14-59); AST 36 U/L (15-37); Albumin 2.8 g/dL (3.4-5.0); Alkaline Phosphatase 539 U/L (46-116); Anion Gap 11.4 mmol/L (3-11); BUN 21 mg/dL (7-18); Bilirubin, Total 0.67 mg/dL (0.2-1.0); CO2 23.6 mmol/L (21.0-32.0); CREATININE 1.1 mg/dL (0.55-1.02); Calcium 9.2 mg/dL (8.5-10.1); Chloride 101 mmol/L (98-107); Glucose 180 mg/dL (74-106); Magnesium 1.9 mg/dL (1.8-2.4); Potassium 3.7 mmol/L (3.5-5.1); Sodium 136 mmol/L (136-145); Total Protein 6.5 g/dL (6.4-8.2); Troponin I < 50 ng/L (< or =60)
[2024-05-14 13:22] LABS: HCT 26.6 % (36.0-46.0); HGB 8.7 g/dL (11.2-15.7)
--- NOTE | 2024-05-14 13:47 | ANES_ITS ---
Date of service: 05/14/24 Time of Service: 13:35 Anesthesia Note Report Anesthesia Note: Discussed case with Dr. Perez as well as Dr. Tolbert, general surgeon control and recovery combat rescue. Plan for potential EGD tomorrow. Discussed risk of anesthetic procedure with hospitalist team and surgery. Given her recent findings of likely metastatic disease with multiple PEs and DVTs, ASA 4 status, and SOB, it was determined that the patient would be better served at a tertiary care center. Upon arrival to the patient's room to discuss the case with the patient and her , she stated that she was already spoken with regarding the risk of the procedure here at [facility] and understood the risks. Plan and case discussed with the team and will try to initiate transfer.
--- NOTE | 2024-05-14 15:07 | INITIAL_ITS ---
Date of service: 05/14/24 Time of Service: 15:07 Care Management Initial Assmt Initial Assessment Reason for Hospitalization: Pulmonary Emboli, pancreatic mass which is new in diagnosis and appears to have metastasized to the liver. Functional Status/Living Situation Patient Presentation: Cheryl resides in [place] primarily, though her and her Juan live in [place] during the winter months. Town of Residence: [facility] Resides with: Spouse Employment Status: Retired Instrumental Activities of Daily Living (ADLs): Independent Advance Directives Advance Directives: Do you have an Advance Directive: N 08/10/13 09:00 AD On File at [facility]: N 08/10/13 09:00 Date Asked 05/13/24 05/13/24 15:36 AD Date Reviewed COLST On File at [facility] COLST Date Scanned Code Status Resuscitation Status Full Code Portal Pt does not currently have a portal and education provided: Yes Insurance Coverage/Financial Issues Insurance: Medicare AARP MCR Supplemental ACO Member: Yes Care Team Visit Care Team Role Provider Type Chitra Franks Primary Care Provider NON-[facility] STAFF PHYSICIAN Justin Tolbert MD Other Providers CONSULTING PHYSICIAN Roberta Manzo, RASTA, CDCALENA Other Providers STARCH AND PROSIZE MIXER Shannen Bedolla Other Providers STARCH AND PROSIZE MIXER Abraham Wall RDN Other Providers STARCH AND PROSIZE MIXER Valeria Montes Emergency Provider NURSE PRACTITIONER Harry Kyle Admit Provider NON-[facility] STAFF PHYSICIAN Attending Provider Discharge Potential Discharge Needs: Consult, Imaging/labs, PT Evaluation, PCP F/U Appt and Surgical F/U Appt Anticipated Barriers to Discharge: Medical Status Patient/Family Education Needs: Review discharge instructions, discuss Ask Me Three Transportation: Private vehicle Plan: Cheryl remains inpatient, anticipate goals of care discussion once options for further treatment are known. Per MD, transfer to [facility] is anticipated. CM continues to follow. PFSH All Active Problems (Updated 05/14/24 @ 18:21 by Wellington Perez) Chronic disease anemia (Acute) Anemia due to GI blood loss (Acute) Hyponatremia (Acute) Anemia due to GI blood loss (Acute) Pulmonary emboli (Chronic) Pancreatic mass (Acute) Liver lesion (Acute) Liver masses (Acute) Pancreatic mass (Acute) Pulmonary embolus (Acute) Acute UTI (Acute) Hyperglycemia (Acute) Fatigue (Acute) Malodorous urine (Acute) Pessary maintenance (Acute) Successful placement of Gellhorn pessaries had complications with fecal incontinence with pessary in place Constipation (Chronic) Uses MiraLAX Diabetes (Chronic) 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 Fracture of right distal radius (Acute) Status post cataract extraction and insertion of intraocular lens of right eye (Chronic) Status post cataract extraction and insertion of intraocular lens of left eye (Chronic 09/13/18) Optic atrophy, left eye (Chronic) Optic atrophy, right eye (Chronic) Medical History (Updated 05/14/24 @ 18:21 by Wellington Perez) CKD stage 3a, GFR 45-59 ml/min Essential hypertension Hyperlipidemia Surgical History History of cataract surgery Family History Brother Cancer Nasal cancer Diabetes Brother Cancer Kidney cancer Heart disease Other Hyperlipidemia Hypertension Social History Smoking/Tobacco Use Status: Never Smoking risk assessment performed?: Yes Alcohol Intake: never Drug use: Never Household members: spouse and other Details: [facility] Housing: house Number of Children: 4 current occupation: retired. lives in [place] during winter Do you feel safe at home: Yes Do you feel safe in your relationship?: Yes Female Reproductive History Menstrual Menopause type: natural History History 4 Para Hx # Term Pregnancies 4 Multiple births Hx # Pregnancies Ectopic pregnancies AB induced Hx Number of Living Children AB spontaneous SDOH(Care Management) Screening Will the Patient Participate in the Screening?: Yes Do you worry about having a steady place to live?: no Problems where you live: no known problems In the past 12 months, have you had to go without electric, gas, oil or water in your home?: no Have you or anyone in your house had to go without enough food to eat?: no Has lack of transportation kept you from medical appointments or from doing things needed for daily living?: no Has anyone in your support network made you feel unsafe for any reason?: no
[2024-05-14 15:37] LABS: PTT Activated 22.1 sec (23.6-32.8)
[2024-05-14] MEDS: Sucralfate 1 GM TAB PO (15:52)
[2024-05-14] MEDS: Heparin in 0.45% NaCl 25,000 UNIT/250 ML BAG 8.5 UNIT IV (15:58)
--- NOTE | 2024-05-14 17:42 | DSE_ITS ---
Date of service: 05/14/24 Time of Service: 17:42 DS: Diagnosis Discharge Diagnosis (1) Pulmonary embolus: Status: Acute (2) Pancreatic mass: Status: Acute (3) Liver masses: Status: Acute (4) Diabetes: Status: Chronic (5) Chronic disease anemia: Status: Acute Discharge Plan Disposition Patient Disposition: Transfer-Acute Inpatient Care Specific Acute Inpt Facility: [facility] Condition: Serious Discharge Details Reason For Visit: Pulmonary Emboli,Pancreatic mass with liver mass Admit Date/Time: 05/13/24 20:58 Admit Provider: Harry Kyle Attending Provider: Harry Kyle Primary Care Provider: [facility] Hospital Course Hospital Course: 78 yo F with history of DM, HTN, and CKD3 who presented with weight loss, progressive dyspnea on exertion and new black stools. Evaluation in the outpatient and ED revealed hemoglobin of 8.7 down from 11.4 10 days prior, bilateral pulmonary emboli, thrombus in right common femoral vein, new malignant appearing mass in the pancreatic tail, and metastatic appearing liver lesions. Note was made of an abdominal ultrasound from 05/11/24 that did not reveal the pancreatic mass. She was given one dose of enoxaparin. Troponin was negative and no signs of right heart strain on POCUS, and she was never hypoxic and she was hemodynamically stable. [facility] Cardiology consulted and recommended holding further anticoagulation pending GI work up. She did not have black or bloody stool on rectal exam, though hemoccult was positive. Her hgb dropped to 7.2, but rebounded to 8.7 after one unit of PRBC. She was treated with pantoprazole 40mg BID and carafate. Given the improvement in hemoglobin and no ongoing bleeding evident, heparin drip was started with plan to stop if overt bleeding occurred. Local surgeon Dr. Tolbert was consulted to consider EGD, but our anesthesia felt the patient was very high risk for our setting. After discussion with the patient and her family, we decided to pursue transfer for specialist care and diagnostic capabilities. Her creatinine was 1.2 to 1.1, which is about her baseline. Her lisinopril was continued. Her blood sugars were moderately elevated in the high 100s and 200s. She has had recent poor blood sugar control, presumed related to her pancreatic disease. She was treated with sliding scale insulin. Home Meds and New Rx's Prescriptions: No Action multivitamin [Daily Multi-Vitamin] Tablet 1 tab PO DAILY aspirin [Aspirin Low-Strength] 81 MG tablet,chewable 81 mg PO DAILY atorvastatin [Lipitor] 10 MG tablet 10 mg PO DAILY hydrochlorothiazide 12.5 MG tablet 12.5 mg PO DAILY Patient Comments: not taking amlodipine [Norvasc] 10 mg Tablet 10 mg PO DAILY Grant Oil-1000 1,000-200 mg Capsule 2 cap PO DAILY cholecalciferol (vitamin D3) [Vitamin D3] 2,000 unit Tablet 2,000 unit PO DAILY Patient Comments: not taking lisinopril 10 mg tablet 10 mg PO DAILY Patient Comments: TAKE 1 TABLET BY MOUTH EVERY DAY Discharge Instructions Activity:: Activity as Tolerated Equipment/Supplies:: No Equipment Needed Diet:: As Tolerated Discharge Orders Discharge Orders: Discharge Order (Routine); Ordered 05/14/24 Ordered By: Wellington Perez DS: Summary Time Spent with Patient providing and/or coordinating discharge services: Greater than 30 minutes Status at Discharge Functional status at discharge: independent ambulation Overall status at discharge: patient is not back to baseline Mental Status: mental status grossly normal Speech and Movement: speech and movement normal Mood: congruent mood Affect: anxious affect Quality:SDOH Health Related Social Needs: No Data to Display Exam Narrative Exam Narrative: Patient is awake and alert, no acute distress, though mildly anxious sclera pale, no icterus Neck is supple with no lymphadenopathy, no masses. Chest shows bilateral clear breath sounds to auscultation, good lung expansion. Abdomen is soft and nondistended, not tender Extremities: no evidence of edema with good femoral pulses. Psych Mental Status: mental status grossly normal Speech and Movement: speech and movement normal Mood: congruent mood Affect: anxious affect DS: Data Vitals/I&O Vitals and I&O: Vital Signs Temperature 36.6 C 05/14/24 17:08 Temperature Source Tympanic 05/14/24 17:08 Pulse 90 05/14/24 17:08 Pulse Rhythm Regular 05/14/24 16:05 Pulse 83 05/13/24 21:31 Respiratory Rate 16 05/14/24 17:08 Respiratory Effort Normal 05/14/24 16:05 Respiratory Depth Normal 05/14/24 16:05 Respiratory Pattern Normal 05/14/24 16:05 Blood Pressure 134/74 05/14/24 17:08 Blood Pressure Mean 90 05/13/24 21:30 Blood Pressure Position Sitting 05/13/24 16:15 Pulse Oximetry 99 05/14/24 17:08 Oxygen Delivery Method Room Air 05/14/24 17:08 Oxygen Flow Rate 0 05/14/24 17:08 Pain Level 0 05/13/24 22:49 Comment Nurse notified in room. 05/14/24 07:25 Intake & Output 05/13/24 05/14/24 05/14/24 23:59 11:59 23:59 Intake Total 1948.333 / 2342.799 394.466 / 2342.799 Output Total 385 / 685 300 / 685 Balance 1563.333 / 1657.799 94.466 / 1657.799 Weight 48.7 kg 49.9 kg Intake: IV 698.333 / 972.799 274.466 / 972.799 Oral 740 / 860 120 / 860 Blood Product 500 / 500 Rbc Leuko Reduced Unit 500 / 500 [id number] Other 10 / 10 Rbc Leuko Reduced Unit 10 / 10 [id number] Output: Urine 385 / 685 300 / 685 Other: Urine Color Yellow Yellow Urine Appearance Clear Clear Clear Urine Odor None None Comment THIS RN ASSISTED PT TO TOILET AND BACK TO BED Stool Occult Blood Positive Stool Characteristics Formed Voiding Methods Toilet Toilet Data Completed and Pending Labs on day of discharge: Labs from last 24 hours 05/14/24 05/14/24 05/14/24 21:20 15:20 12:58 WBC RBC Hgb 8.7 L Hct 26.6 L MCV MCH MCHC RDW Plt Count MPV PT INR APTT Pending 22.1 L Sodium Potassium Chloride Carbon Dioxide Anion Gap BUN Creatinine Est GFR (CKD-EPI 2020) Glucose Calcium Magnesium Iron Ferritin Total Bilirubin AST ALT Alkaline Phosphatase Troponin I Total Protein Albumin Vitamin B12 Urine Color Urine Clarity Urine pH Ur Specific [place] Urine Protein Urine Ketones Urine Blood Urine Nitrite Urine Bilirubin Urine Urobilinogen Ur Leukocyte Esterase Urine Glucose Add-On Test Request ABO/Rh Blood Type Recheck Antibody Screen Crossmatch 05/14/24 05/14/24 05/14/24 10:20 04:36 03:25 WBC RBC Hgb Hct MCV MCH MCHC RDW Plt Count MPV PT INR APTT Sodium 136 Potassium 3.7 Chloride 101 Carbon Dioxide 23.6 Anion Gap 11.4 H BUN 21 H Creatinine 1.1 H Est GFR (CKD-EPI 2020) 50.80 Glucose 180 H Calcium 9.2 Magnesium 1.9 Iron Ferritin Total Bilirubin 0.67 AST 36 ALT 36 Alkaline Phosphatase 539 H Troponin I < 50 Total Protein 6.5 Albumin 2.8 L Vitamin B12 Urine Color Yellow Urine Clarity Clear Urine pH 5.5 Ur Specific [place] 1.015 Urine Protein Negative Urine Ketones Negative Urine Blood Negative Urine Nitrite Negative Urine Bilirubin Negative Urine Urobilinogen 0.2 Ur Leukocyte Esterase Negative Urine Glucose 500 H Add-On Test Request ABO/Rh Blood Type Recheck A Positive Antibody Screen Crossmatch 05/14/24 05/13/24 05/13/24 01:15 21:41 21:18 WBC 6.54 RBC 2.48 L Hgb 7.2 L Hct 22.2 L MCV 90 MCH 29.0 MCHC 32.4 RDW 15.0 H Plt Count 214 MPV 10.9 PT INR APTT Sodium Potassium Chloride Carbon Dioxide Anion Gap BUN Creatinine Est GFR (CKD-EPI 2020) Glucose Calcium Magnesium Iron Ferritin Total Bilirubin AST ALT Alkaline Phosphatase Troponin I < 50 < 50 Total Protein Albumin Vitamin B12 Urine Color Urine Clarity Urine pH Ur Specific [place] Urine Protein Urine Ketones Urine Blood Urine Nitrite Urine Bilirubin Urine Urobilinogen Ur Leukocyte Esterase Urine Glucose Add-On Test Request DONE ABO/Rh Blood Type Recheck Antibody Screen Crossmatch 05/13/24 05/13/24 05/13/24 20:50 15:53 15:52 WBC 10.87 H RBC 2.92 L Hgb 8.5 L Hct 26.7 L MCV 91 MCH 29.1 MCHC 31.8 L RDW 15.3 H Plt Count 305 MPV 11.8 H PT 12.0 H INR 1.2 H APTT 21.7 L Sodium Potassium Chloride Carbon Dioxide Anion Gap BUN Creatinine Est GFR (CKD-EPI 2020) Glucose Calcium Magnesium 1.9 Iron 34 L Ferritin 242 Total Bilirubin AST ALT Alkaline Phosphatase Troponin I < 50 Total Protein Albumin Vitamin B12 > 2000 H Urine Color Urine Clarity Urine pH Ur Specific [place] Urine Protein Urine Ketones Urine Blood Urine Nitrite Urine Bilirubin Urine Urobilinogen Ur Leukocyte Esterase Urine Glucose Add-On Test Request ABO/Rh A Positive Blood Type Recheck Cancelled Antibody Screen NEGATIVE Crossmatch See Detail PFSH All Active Problems (Updated 06/22/24 @ 10:17 by Justin Tolbert MD) Chronic disease anemia (Acute) Anemia due to GI blood loss (Acute) Hyponatremia (Acute) Anemia due to GI blood loss (Acute) Pulmonary emboli (Chronic) Pancreatic mass (Acute) Liver lesion (Acute) Liver masses (Acute) Pancreatic mass (Acute) Pulmonary embolus (Acute) Acute UTI (Acute) Hyperglycemia (Acute) Fatigue (Acute) Malodorous urine (Acute) Pessary maintenance (Acute) Successful placement of [place] pessaries had complications with fecal incontinence with pessary in place Constipation (Chronic) Uses MiraLAX Diabetes (Chronic) 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 Fracture of right distal radius (Acute) Status post cataract extraction and insertion of intraocular lens of right eye (Chronic) Status post cataract extraction and insertion of intraocular lens of left eye (Chronic 09/13/18) Optic atrophy, left eye (Chronic) Optic atrophy, right eye (Chronic) Medical History Essential hypertension Hyperlipidemia Surgical History History of cataract surgery Family History Brother Cancer Nasal cancer Diabetes Brother Cancer Kidney cancer Heart disease Other Hyperlipidemia Hypertension Social History Smoking/Tobacco Use Status: Never Smoking risk assessment performed?: Yes Alcohol Intake: never Drug use: Never Household members: spouse and other Details: [facility] [place] [facility] Housing: house Number of Children: 4 current occupation: retired. lives in [place] during winter Do you feel safe at home: Yes Do you feel safe in your relationship?: Yes Female Reproductive History Menstrual Menopause type: natural History History 4 Para Hx # Term Pregnancies 4 Multiple births Hx # Pregnancies Ectopic pregnancies AB induced Hx Number of Living Children AB spontaneous Time Spent with Patient Time Spent with Patient: 45-69 minutes Time was spent: preparing to see the patient(eg.review tests), obtaining and/or reviewing separately otained hiistory, ordering medications,tests, procedures, referring, communicating with other health child care centre manager, indepentently interpreting results, counseling the patient and care coordination
--- NOTE | 2024-05-14 18:16 | PGE_ITS ---
Date of Service Date of service: 05/14/24 Time of Service: 18:16 Assessment and Plan Assessment and plan (1) Pulmonary embolus: Status: Acute Assessment and plan: Lovenox was stopped after consultation with [facility] cardiology and drop in hemoglobin from 8.5 to 7.2. However no active GI bleed evident and hgb up to 8.7 after one unit. Given this, I resumed anticoagulation with heparin so that it can but turned off/reversed if acute bleed. Qualifiers: Pulmonary embolism type: multiple subsegmental (without acute cor pulmonale) Qualified Code(s): I26.94 - Multiple subsegmental pulmonary emboli without acute cor pulmonale (2) Anemia due to GI blood loss: Status: Acute Assessment and plan: No overt active bleed, but a clear recent significant blood loss with hgb dropping from 14 in March and 11.4 on May 03. She should have GI evaluation but high risk to do this here. She has been accepted by [facility] pending bed availability. Continue PPI BID, I added carafate for possible PUD. (3) Pancreatic mass: Status: Acute Assessment and plan: She and her understand this is likely cancer and she would like a biopsy to understand her prognosis and options. This is another indication for transfer. (4) Diabetes: Status: Chronic Assessment and plan: sugars running high. start low dose basal insulin along with ISS. Qualifiers: Diabetes mellitus type: type 2 Diabetes mellitus mcc insulin use: without terminal superintendent use Diabetes mellitus complication status: with kidney complications Diabetes mellitus complication detail: with chronic kidney disease Chronic kidney disease stage: stage 3 (moderate) Chronic kidney disease stage 3 subtype: stage 3a (GFR 45-59) Qualified Code(s): E11.22 - Type 2 diabetes mellitus with diabetic chronic kidney disease; N18.31 - Chronic kidney disease, stage 3a (5) CKD stage 3a, GFR 45-59 ml/min: Assessment and plan: at her baseline, has been seen at [facility] for this before, related to DM. Subjective Subjective Patient reports: no new complaints and voiding w/o difficulty; denies diarrhea, blood in stool, vomiting or fever Interval history since last seen: events: 1 unit PRBC this morning Still dyspneic when she walks to bathroom, feels okay at rest. No chest pain. Hasn't had bleeding, brown stool was hemocult positive. No abdominal pain, no nausea but she has a poor appetite. Exam Narrative Exam Narrative: Patient is awake and alert, no acute distress, though mildly anxious sclera pale, no icterus Neck is supple with no lymphadenopathy, no masses. Chest shows bilateral clear breath sounds to auscultation, good lung expansion. Abdomen is soft and nondistended, not tender Extremities: no evidence of edema with good femoral pulses. Objective Last Vital Signs Temp 36.6 C 05/14/24 17:08 Pulse 90 05/14/24 17:08 Resp 16 05/14/24 17:08 BP 134/74 05/14/24 17:08 Pulse Ox 99 05/14/24 17:08 Laboratory Results - last 24 hr 05/13/24 05/13/24 05/13/24 15:52 15:53 20:50 WBC RBC Hgb Hct MCV MCH MCHC RDW Plt Count MPV PT 12.0 H INR 1.2 H APTT 21.7 L Sodium Potassium Chloride Carbon Dioxide Anion Gap BUN Creatinine Est GFR (CKD-EPI 2020) Glucose Calcium Magnesium 1.9 Iron 34 L Ferritin 242 Total Bilirubin AST ALT Alkaline Phosphatase Troponin I < 50 Total Protein Albumin Vitamin B12 > 2000 H Urine Color Urine Clarity Urine pH Ur Specific [place] Urine Protein Urine Ketones Urine Blood Urine Nitrite Urine Bilirubin Urine Urobilinogen Ur Leukocyte Esterase Urine Glucose Add-On Test Request ABO/Rh A Positive Blood Type Recheck Cancelled Antibody Screen NEGATIVE Crossmatch See Detail 05/13/24 05/13/24 05/14/24 21:18 21:41 01:15 WBC 6.54 RBC 2.48 L Hgb 7.2 L Hct 22.2 L MCV 90 MCH 29.0 MCHC 32.4 RDW 15.0 H Plt Count 214 MPV 10.9 PT INR APTT Sodium Potassium Chloride Carbon Dioxide Anion Gap BUN Creatinine Est GFR (CKD-EPI 2020) Glucose Calcium Magnesium Iron Ferritin Total Bilirubin AST ALT Alkaline Phosphatase Troponin I < 50 < 50 Total Protein Albumin Vitamin B12 Urine Color Urine Clarity Urine pH Ur Specific [place] Urine Protein Urine Ketones Urine Blood Urine Nitrite Urine Bilirubin Urine Urobilinogen Ur Leukocyte Esterase Urine Glucose Add-On Test Request DONE ABO/Rh Blood Type Recheck Antibody Screen Crossmatch 05/14/24 05/14/24 05/14/24 03:25 04:36 10:20 WBC RBC Hgb Hct MCV MCH MCHC RDW Plt Count MPV PT INR APTT Sodium 136 Potassium 3.7 Chloride 101 Carbon Dioxide 23.6 Anion Gap 11.4 H BUN 21 H Creatinine 1.1 H Est GFR (CKD-EPI 2020) 50.80 Glucose 180 H Calcium 9.2 Magnesium 1.9 Iron Ferritin Total Bilirubin 0.67 AST 36 ALT 36 Alkaline Phosphatase 539 H Troponin I < 50 Total Protein 6.5 Albumin 2.8 L Vitamin B12 Urine Color Yellow Urine Clarity Clear Urine pH 5.5 Ur Specific [place] 1.015 Urine Protein Negative Urine Ketones Negative Urine Blood Negative Urine Nitrite Negative Urine Bilirubin Negative Urine Urobilinogen 0.2 Ur Leukocyte Esterase Negative Urine Glucose 500 H Add-On Test Request ABO/Rh Blood Type Recheck A Positive Antibody Screen Crossmatch 05/14/24 05/14/24 12:58 15:20 WBC RBC Hgb 8.7 L Hct 26.6 L MCV MCH MCHC RDW Plt Count MPV PT INR APTT 22.1 L Sodium Potassium Chloride Carbon Dioxide Anion Gap BUN Creatinine Est GFR (CKD-EPI 2020) Glucose Calcium Magnesium Iron Ferritin Total Bilirubin AST ALT Alkaline Phosphatase Troponin I Total Protein Albumin Vitamin B12 Urine Color Urine Clarity Urine pH Ur Specific [place] Urine Protein Urine Ketones Urine Blood Urine Nitrite Urine Bilirubin Urine Urobilinogen Ur Leukocyte Esterase Urine Glucose Add-On Test Request ABO/Rh Blood Type Recheck Antibody Screen Crossmatch Time Spent with Patient Time Spent with Patient: >50 minutes Time was spent: preparing to see the patient(eg.review tests), obtaining and/or reviewing separately otained hiistory, ordering medications,tests, procedures, referring, communicating with other health wound care physician, indepentently interpreting results, counseling the patient and care coordination
[2024-05-14] MEDS: Atorvastatin 20 MG TAB 40 MG PO (20:10)
[2024-05-14] MEDS: Insulin Glargine 300 UNITS/3 ML PEN 10 UNITS SC (20:58)
[2024-05-14 21:53] LABS: PTT Activated > 155.0 sec (23.6-32.8)
[2024-05-15 01:39] VITALS: BP 148/70; PULSE 82; RESP 18; TEMP 37.4; O2SAT 99
[2024-05-15] MEDS: Sucralfate 1 GM TAB PO ×4 (01:39→15:57)
[2024-05-15] MEDS: Pantoprazole 40 MG VIAL IVP ×2 (01:39→14:35)
[2024-05-15 05:25] LABS: HCT 26.6 % (36.0-46.0); HGB 8.7 g/dL (11.2-15.7); MCH 29.4 pg (27.0-33.0); MCHC 32.7 % (32.0-36.0); MCV 90 fL (80-95); MPV 10.9 fL (8.0-11.0); Platelet Count 235 10^3/uL (130-400); RBC 2.96 10^6/uL (3.93-5.22); RDW 15.1 % (11.7-14.6); RDW-SD 48.6 fL; WBC 6.36 10^3/uL (4.4-10.8)
[2024-05-15 05:34] VITALS: BP 150/72; PULSE 89; RESP 18; TEMP 36.3; O2SAT 99
[2024-05-15 05:51] LABS: ALT 42 U/L (14-59); AST 49 U/L (15-37); Albumin 2.7 g/dL (3.4-5.0); Alkaline Phosphatase 541 U/L (46-116); BUN 19 mg/dL (7-18); Bilirubin, Total 0.82 mg/dL (0.2-1.0); Calcium 9.1 mg/dL (8.5-10.1); Chloride 101 mmol/L (98-107); Estimated GFR 56.95 (mL/min/1.73m2); Glucose 242 mg/dL (74-106); Sodium 136 mmol/L (136-145); Total Protein 6.1 g/dL (6.4-8.2)
[2024-05-15 06:03] LABS: PTT Activated > 155.0 sec (23.6-32.8)
[2024-05-15] MEDS: Insulin Aspart 300 UNITS/3 ML PEN SC ×2 (07:37→11:52)
[2024-05-15] MEDS: Lisinopril 20 MG TAB 40 MG PO (07:38)
[2024-05-15] MEDS: Cholecalciferol (Vitamin D3) 1,000 UNIT TAB 2000 UNITS PO (07:38)
[2024-05-15] MEDS: Multivitamin TAB 1 TAB PO (07:39)
[2024-05-15] MEDS: amLODIPine 10 MG TAB 5 MG PO (07:39)
[2024-05-15] MEDS: Normal Saline Flush 10 ML SYR IVP ×3 (07:40→15:58)
[2024-05-15] MEDS: Omega-3 Fatty Acids 1000 MG CAP 2000 MG PO (07:40)
[2024-05-15 11:09] VITALS: BP 148/84; PULSE 84; RESP 18; TEMP 37.7; O2SAT 99
--- NOTE | 2024-05-15 12:16 | W.PM.PROGNOT ---
Date of Service Date of service: 05/15/24 Time of Service: 12:16 Assessment and Plan Assessment and plan (1) Pulmonary embolus: Status: Acute Assessment and plan: Lovenox was stopped after consultation with [facility] cardiology and drop in hemoglobin from 8.5 to 7.2 on 05/13. However hgb up to 8.7 after one unit so resumed anticoagulation with heparin 05/14. Still small amount of black stook ,but hgb stable today. Continue heparin. Qualifiers: Pulmonary embolism type: multiple subsegmental (without acute cor pulmonale) Qualified Code(s): I26.94 - Multiple subsegmental pulmonary emboli without acute cor pulmonale (2) Anemia due to GI blood loss: Status: Acute Assessment and plan: No overt active bleed, but a clear recent significant blood loss with hgb dropping from 14 in March and 11.4 on May 03. One heme+ black stool in past 24 hours this morning. She should have GI evaluation but high risk to do this here. She has been accepted by [facility] pending bed availability. Continue PPI BID and carafate for possible PUD. (3) Pancreatic mass: Status: Acute Assessment and plan: She and her understand this is likely cancer and she would like a biopsy to understand her prognosis and options. This is another indication for transfer. AST and alkaline phosphates mildly elevated likely related to associated liver metastases seen on CT, but this is stable. (4) Diabetes: Status: Chronic Assessment and plan: sugars improved after adding low dose basal insulin along with ISS, but fasting still high. Titrate up conservatively Qualifiers: Diabetes mellitus type: type 2 Diabetes mellitus middle or intermediate school principal insulin use: without middle or intermediate school principal use Diabetes mellitus complication status: with kidney complications Diabetes mellitus complication detail: with chronic kidney disease Chronic kidney disease stage: stage 3 (moderate) Chronic kidney disease stage 3 subtype: stage 3a (GFR 45-59) Qualified Code(s): E11.22 - Type 2 diabetes mellitus with diabetic chronic kidney disease; N18.31 - Chronic kidney disease, stage 3a (5) CKD stage 3a, GFR 45-59 ml/min: Assessment and plan: at her baseline, has been seen at [facility] for this before, related to DM. Subjective Subjective Patient reports: no new complaints, tolerating a regular diet and voiding w/o difficulty; denies vomiting or fever Interval history since last seen: Had one medium BM in AM that looked black, no other bleeding. Still no pain. Not nauseous, but only able to eat small amount at a time, appetite not great. No change in dyspnea on exertion, no SOB at rest. Not dizzy, no chest pain. Exam Narrative Exam Narrative: Patient is awake and alert, no acute distress sclera pale, no icterus CV: RRR, no murmurs Lungs: bilateral clear breath sounds to auscultation, good lung expansion. Abdomen: +BS, soft and nondistended, not tender Extremities: no evidence of edema with good femoral pulses. Objective Last Vital Signs Temp 37.7 C H 05/15/24 11:09 Pulse 84 05/15/24 11:09 Resp 18 05/15/24 11:09 BP 148/84 H 05/15/24 11:09 Pulse Ox 99 05/15/24 11:09 Laboratory Results - last 24 hr 05/14/24 05/14/24 05/14/24 12:58 15:20 21:05 WBC RBC Hgb 8.7 L Hct 26.6 L MCV MCH MCHC RDW Plt Count MPV APTT 22.1 L > 155.0 H* Sodium Potassium Chloride Carbon Dioxide Anion Gap BUN Creatinine Est GFR (CKD-EPI 2020) Glucose Calcium Total Bilirubin AST ALT Alkaline Phosphatase Total Protein Albumin 05/15/24 05:00 WBC 6.36 RBC 2.96 L Hgb 8.7 L Hct 26.6 L MCV 90 MCH 29.4 MCHC 32.7 RDW 15.1 H Plt Count 235 MPV 10.9 APTT > 155.0 H* Sodium 136 Potassium 4.0 Chloride 101 Carbon Dioxide 25.0 Anion Gap 10.0 BUN 19 H Creatinine 1.0 Est GFR (CKD-EPI 2020) 56.95 Glucose 242 H Calcium 9.1 Total Bilirubin 0.82 AST 49 H ALT 42 Alkaline Phosphatase 541 H Total Protein 6.1 L Albumin 2.7 L Time Spent with Patient Time Spent with Patient: 35-49 minutes Time was spent: preparing to see the patient(eg.review tests), obtaining and/or reviewing separately otained hiistory, ordering medications,tests, procedures, referring, communicating with other health health care coach, indepentently interpreting results, counseling the patient and care coordination
[2024-05-15 14:53] LABS: PTT Activated 147.6 sec (23.6-32.8)
[2024-05-15 15:45] VITALS: BP 138/94; PULSE 104; RESP 16; TEMP 37.4; O2SAT 99
== END 2024-05-15 16:26 | disposition short-term general hospital (02) | DRG 176 ==
LOC: ER 21:41 → MS 21:59
PROVIDERS: Family Medicine; Admitting Provider Family Medicine; Emergency Provider Nurse Practitioner Family; PCP Family Medicine; Visit Provider Family Medicine
DX: I26.94 Multiple subsegmental thrombotic pulmonary emboli without acute cor pulmonale (principal); Z68.1 Body mass index [BMI] 19.9 or less, adult; C78.7 Secondary malignant neoplasm of liver and intrahepatic bile duct; E87.1 Hypo-osmolality and hyponatremia; C25.2 Malignant neoplasm of tail of pancreas; D62 Acute posthemorrhagic anemia; I82.890 Acute embolism and thrombosis of other specified veins; I82.411 Acute embolism and thrombosis of right femoral vein; E11.22 Type 2 diabetes mellitus with diabetic chronic kidney disease; E11.65 Type 2 diabetes mellitus with hyperglycemia; N18.31 Chronic kidney disease, stage 3a; I12.9 Hypertensive chronic kidney disease with stage 1 through stage 4 chronic kidney disease, or unspecified chronic kidney disease; E78.2 Mixed hyperlipidemia; R53.1 Weakness; R63.4 Abnormal weight loss; Z79.4 Long term (current) use of insulin
CPT/HCPCS: 00123; 36415; 36430; 71275; 74177; 80048; 80053; 83690; 85027; 86850; 86900; 86901; 86920; 93005; 93308; 96372; 99223; 99285; 81003; 82607; 82728; 83540; 83550; 83735; 84484; 85014; 85018; 85025; 85379; 85610; 85730; 93010; 99233; 99239; J1644; J1650; J1815; J2470; J3490; P9016